=== PATIENT | male | born 1960 | race Caucasian/White ===

== ENCOUNTER → 2019-05-26 09:39 | Outpatient (CLI) | payer MEDICAID ==
[2014-04-10 11:06] VITALS: BMI 20.6
[~2019-05-26 09:39] MED LIST: ALDACTONE25 MG PO; BAYER CHEWABLE81 MG PO; CELEXA20 MG PO; COUMADIN5 MG PO; CRESTOR5 MG; LASIX40 MG PO; LEVAQUIN500 MG PO; LIPITOR10 MG PO; LOPRESSOR25 MG PO; PLAVIX75 MG PO; PRINIVIL10 MG PO; PROSCAR5 MG PO
== END | disposition home or self-care (01) ==
LOC: D.CT 09:39
PROVIDERS: ATTEND Family Medicine
DX: I73.9 Peripheral vascular disease, unspecified (principal)

== ENCOUNTER 2019-07-14 10:52 | Inpatient (IN) | payer MEDICAID ==
[2019-07-14] VITALS (7 sets, daily range): BP systolic 118–143; BP diastolic 82–98; BMI 18.6
[~2019-07-14] VITALS: Ht 177.8 cm; Wt 59.0 kg
[2019-07-14] MEDS ORDERED: PROSCAR5 MG PO (11:01)
[2019-07-14] MEDS ORDERED: COUMADIN5 MG (11:02)
[2019-07-14] MEDS ORDERED: COUMADIN5 MG PO (11:02)
[2019-07-14] MEDS ORDERED: COREG 3.1253.125 MG PO (11:03)
[2019-07-14 11:31] LABS: HEMATOCRIT 41.3 % (42.0-54.0); HEMOGLOBIN 13.6 g/dL (13.5-17.5); MCHC 32.9 g/dL (31.0-37.0); MCV 88.1 fL (80.0-100.0); PLATELET COUNT 209 10x3/uL (130-400); RBC 4.69 10x6/uL (4.20-6.10); RDW 14.6 % (11.5-14.5); WBC 7.7 10x3/uL (4.8-10.8)
[2019-07-14 11:37] LABS: CALC OSMOLALITY 274 mosm/kg (275-300); CALCIUM 8.4 mg/dL (8.5-10.1); CARBON DIOXIDE 25.8 mmol/L (21.0-32.0); CHLORIDE - SERUM 104 mmol/L (98-107); CREATININE - SERUM 1.3 mg/dL (0.6-1.3); GLUCOSE 98 mg/dL (74-106); SODIUM 138 mmol/L (136-145); UREA NITROGEN 10 mg/dL (7-18); eGFR NON AFRICAN AMERICAN 60 mL/min (90-120)
[2019-07-14 11:43] LABS: INR 4.16 (0.85-1.17); PROTIME 39.4 SECONDS (11.6-15.0)
[2019-07-14 11:44] LABS: APTT 63.7 SECONDS (22.8-39.4)
[2019-07-14 11:54] LABS: ALBUMIN 3.1 g/dL (3.4-5.0); ALKALINE PHOSPHATASE 101 U/L (30-120); ALT (SGPT) 13 U/L (10-68); BILIRUBIN - TOTAL 0.29 mg/dL (0.2-1.3); CKMB 0.7 U/L (0.0-3.6); CREATINE KINASE 32 UL (21-232); PRO BNP 8935 pg/mL (0-125); PROTEIN - SERUM 7.1 g/dL (6.4-8.2); TROPONIN-I < 0.017 ng/mL (0.000-0.060)
[2019-07-14 12:08] LABS: EOSINOPHILS 2 % (0-7); LYMPHOCYTES 28 % (15-50); MONOCYTES 8 % (2-11); NEUTROPHILS 62 % (40-80)
[2019-07-14 12:09] LABS: PLATELET ESTIMATE NORMAL
--- NOTE | 2019-07-14 14:10 | NUR ---
NIURKA COMPLETED AT 1410.
--- NOTE | 2019-07-14 14:27 | NUR ---
CALLED MED 2 TO GIVE REPORT. NURSE BUSY IN PT'S ROOM AND WILL CALL BACK
--- NOTE | 2019-07-14 15:04 | NUR ---
RECEIVED PT TO ROOM 2131 VIA WHEELCHAIR, PT A/O X4, RESP EVEN AND NONLABORED ON RA. LT FA IV SL. PT ASKING ABOUT FOOD, INFORMED PT THAT WE WOULD GET HIM SOMETHING TO EAT. ORIENTED PT TO ROOM AND CALL LIGHT, WILL ASSESS PT AND START PLAN OF CARE.
[2019-07-15] VITALS: BP 121/83
--- NOTE | 2019-07-15 02:12 | NUR ---
I have reviewed this patient and I concur with the Shift Assessment completed by the Licensed Practical Nurse today this shift.
[2019-07-15 04:00] VITALS: BP 133/91
[2019-07-15 04:07] LABS: BILIRUBIN NEGATIVE (NEGATIVE); GLUCOSE NEGATIVE (NEGATIVE); KETONE NEGATIVE (NEGATIVE); NITRITE NEGATIVE (NEGATIVE); UROBILINOGEN NORMAL (NORMAL)
[2019-07-15 04:18] LABS: UDS - AMPHET NEGATIVE QUAL (NEGATIVE); UDS - BARB NEGATIVE QUAL (NEGATIVE); UDS - BENZO NEGATIVE QUAL (NEGATIVE); UDS - COCAINE NEGATIVE QUAL (NEGATIVE); UDS - OPIATE NEGATIVE QUAL (NEGATIVE); UDS - PCP NEGATIVE QUAL (NEGATIVE); UDS - THC POSITIVE QUAL (NEGATIVE)
[2019-07-15 06:07] LABS: BASOPHILS 0 % (0-2); EOSINOPHILS 0 % (0-7); HEMATOCRIT 44.8 % (42.0-54.0); HEMOGLOBIN 15.3 g/dL (13.5-17.5); IMMATURE GRANULOCYTES 0.1 % (0-5); LYMPHOCYTES 16.1 % (15-50); MCH 29.5 pg (26.0-34.0); MCHC 34.2 g/dL (31.0-37.0); MCV 86.3 fL (80.0-100.0); MONOCYTES 2.3 % (2-11); NEUTROPHILS 81.5 % (40-80); PLATELET COUNT 225 10x3/uL (130-400); RBC 5.19 10x6/uL (4.20-6.10); RDW 14.2 % (11.5-14.5); WBC 8.9 10x3/uL (4.8-10.8)
[2019-07-15 06:50] LABS: ALBUMIN 3.1 g/dL (3.4-5.0); ANION GAP 15.7 mmol/L (8-16); BILIRUBIN - TOTAL 0.6 mg/dL (0.2-1.3); CALCIUM 8.8 mg/dL (8.5-10.1); CARBON DIOXIDE 22.8 mmol/L (21.0-32.0); CREATININE - SERUM 1.3 mg/dL (0.6-1.3); POTASSIUM - SERUM 4.5 mmol/L (3.5-5.1)
--- NOTE | 2019-07-15 08:51 | NUR ---
NOTIFIED CHIVO SANCHEZ APRN OF PT HAVING A RUN OF VTACH LAST NIGHT.
[2019-07-15 09:00] VITALS: BP 121/82
[2019-07-15 12:00] VITALS: BP 107/75
[2019-07-15 12:26] LABS: INR 2.56 (0.85-1.17); PROTIME 27.1 SECONDS (11.6-15.0)
--- NOTE | 2019-07-15 13:13 | NUR ---
IVPB ROCEPHIN HUNG TO INFUSE TO LT AC. PT RESTING COMFORTABLY IN BED, DENIES ANY NEEDS AT THIS TIME. CALL LIGHT IN REACH, NAD NOTED,WILL CONTINUE TO MONITOR.
[2019-07-15 15:15] VITALS: Ht 177.8 cm; Wt 59.0 kg
[2019-07-15 16:00] VITALS: BP 111/76
--- NOTE | 2019-07-15 17:10 | NUR ---
PT RESTING COMFORTABLY IN BED, DENIES ANY NEEDS AT THIS TIME. CALL LIGHT IN REACH, NAD NOTED, WILL CONTINUE TO MONITOR.
--- NOTE | 2019-07-15 19:47 | NUR ---
ASSESSMENT COMPLETE, PT A&O. SITTING UP IN BED WATCHING TV. RESPERATIONS EVEN AND NON LABORED ON RA IV TO LEFT AC SL, SITE CLEAN AND DRY. PT CURRETLY DENIES PAIN. FRESH ICE WATER GIVEN AT PT REQUEST.
[2019-07-15 20:00] VITALS: BP 98/63
[2019-07-16] VITALS: BP 101/72
--- NOTE | 2019-07-16 01:42 | NUR ---
I have reviewed this patient and I concur with the Shift Assessment completed by the Licensed Practical Nurse today this shift.
--- NOTE | 2019-07-16 04:23 | NUR ---
RESTING WITH EYES CLOSED, RESPERATIONS EVEN, NO S/S DISTRESS NOTED.
[2019-07-16 05:57] LABS: BASOPHILS 0.1 % (0-2); EOSINOPHILS 0 % (0-7); HEMATOCRIT 44.8 % (42.0-54.0); HEMOGLOBIN 15.2 g/dL (13.5-17.5); IMMATURE GRANULOCYTES 0.2 % (0-5); LYMPHOCYTES 10.1 % (15-50); MCH 29.5 pg (26.0-34.0); MCHC 33.9 g/dL (31.0-37.0); MEAN PLATELET VOLUME 11.7 fL (7.4-10.4); MONOCYTES 3.9 % (2-11); NEUTROPHILS 85.7 % (40-80); PLATELET COUNT 225 10x3/uL (130-400); RBC 5.15 10x6/uL (4.20-6.10); RDW 14.3 % (11.5-14.5)
[2019-07-16 06:30] LABS: ANION GAP 10.2 mmol/L (8-16); CALCIUM 8.7 mg/dL (8.5-10.1); CREATININE - SERUM 1.6 mg/dL (0.6-1.3); POTASSIUM - SERUM 4.5 mmol/L (3.5-5.1)
[2019-07-16 06:51] LABS: CARBON DIOXIDE 29.3 mmol/L (21.0-32.0)
[2019-07-16 10:13] VITALS: BP 98/65
[2019-07-16] MEDS ORDERED: OMNICEF300 MG PO (12:05)
[2019-07-16] MEDS ORDERED: COREG6.25 MG PO (12:05)
--- NOTE | 2019-07-16 13:07 | MORECARE ---
CASE MANAGEMENT DISCHARGE SUMMARY PATIENT: CLIFF PINEDA ALLI UNIT: [id number] ADM DATE: 07/14/19 AGE: 59 : 62 SEX: M ROOM/BED: D.2132 AUTHOR: TENZIN CONLEY PHYSICIAN: REFERRING PHYSICIAN: SUSANA ESCALONA MD DATE OF SERVICE: 07/16/19 Discharge Plan Patient Name: CLIFF PINEDA Facility: [facility]:[place] : 1960 Planned Disposition: Home Health Service Anticipated Discharge Date: Discharge Date: Expected LOS: Initial Reviewer: [email or web address] Initial Review Date: 07/16/2019 Generated: 07/16/19 2:06 pm Comments DCP- Discharge Planning Updated by [email or web address]: Yi Machado on 07/16/19 12:[address] Patient Name: CLIFF PINEDA Admission Status: Elective Accout number: [id number] Admission Date: 07-14-2019 : 1960 Admission Diagnosis: Attending: SUSANA ESCALONA Current LOS: 2 Anticipated DC Date: Planned Disposition: Home Health Service Primary Insurance: MEDICAID [place] Discharge Planning Comments: CM MET WITH PATIENT AFTER OBTAINING VERBAL CONSENT. PATIENT PLANS TO DC TO HOME TODAY. DENIES NEED FOR REHAB OR EQUIPMENT. PATIENT DOES NEED HH. SOON HE GETS IN TOUCH WITH HIS MOM HE WILL CALL ME WITH THE COMPANY NAME. CM TO FOLLOW AND ASSIST. Coal Chemist: Yi Machado DCPIA - Discharge Planning Initial Assessment Updated by [email or web address]: Yi Machado on 07/16/19 1:03 pm * Is the patient Alert and Oriented? Yes * PCP AILYN * [facility] * Preadmission Environment Home with Family * ADLs Independent * Additional services required to return to the preadmission environment? Yes * Can the patient safely return to the preadmission environment? Yes * Has this patient been hospitalized within the prior 30 days at any hospital? No Patient Name: CLIFF PINEDA Page 08023 at 1307 All edits/amendments must be made on the electronic document DICTATION DATE: 07/16/19 1306 STOKER INSTALLATION MECHANIC: LUIS FERNANDO 07/16/19 1306 RPT#: [id number] DC DATE: STATUS: ADM IN [facility] [address] [place] [address] END OF REPORT
--- NOTE | 2019-07-16 14:01 | MORECARE ---
CASE MANAGEMENT DISCHARGE SUMMARY PATIENT: CLIFF PINEDA ALLI UNIT: [id number] ADM DATE: 07/14/19 AGE: 59 : 62 SEX: M ROOM/BED: D.2132 AUTHOR: TENZIN CONLEY PHYSICIAN: REFERRING PHYSICIAN: SUSANA ESCALONA MD DATE OF SERVICE: 07/16/19 Discharge Plan Patient Name: CLIFF PINEDA Facility: [facility]:[place] : 1960 Planned Disposition: Home Health Service Anticipated Discharge Date: Discharge Date: Expected LOS: Initial Reviewer: [email or web address] Initial Review Date: 07/16/2019 Generated: 07/16/19 3:00 pm Comments DCP- Discharge Planning Updated by [email or web address]: Yi Machado on 07/16/19 12:[address] Patient Name: CLIFF PINEDA Admission Status: Elective Accout number: [id number] Admission Date: 07-14-2019 : 1960 Admission Diagnosis: Attending: SUSANA ESCALONA Current LOS: 2 Anticipated DC Date: Planned Disposition: Home Health Service Primary Insurance: MEDICAID [place] Discharge Planning Comments: CM MET WITH PATIENT AFTER OBTAINING VERBAL CONSENT. PATIENT PLANS TO DC TO HOME TODAY. DENIES NEED FOR REHAB OR EQUIPMENT. PATIENT DOES NEED HH. SOON HE GETS IN TOUCH WITH HIS MOM HE WILL CALL ME WITH THE COMPANY NAME. CM TO FOLLOW AND ASSIST. Eeg Technician: Yi Machado DCPIA - Discharge Planning Initial Assessment Updated by [email or web address]: Yi Machado on 07/16/19 1:03 pm * Is the patient Alert and Oriented? Yes * PCP AILYN * [facility] * Preadmission Environment Home with Family * ADLs Independent * Additional services required to return to the preadmission environment? Yes * Can the patient safely return to the preadmission environment? Yes * Has this patient been hospitalized within the prior 30 days at any hospital? No External Providers [email or web address] [place] Next Contact Date: Service Request Date: Service Type: Resolution: Reviewer: Comments: Coverage Notice Reviewer: [email or web address] Barbara Machado Notice Issued Date-Time: 07/16/2019 13:53 Notice Type: Patient Choice Letter Notice Delivered To: Relationship to Patient: Zoning Assistant Name: Delivery Method: HAND - Hand Delivered Karlee Days: Prior Verbal Notification: Recipient Understood Notice: Yes Recipient Signature: Yes Med Rec Note Co-signed by Attending: Coverage Notice Comment: LESLIE PHILLIPS Last DP export: 07/16/19 12:07 p Patient Name: CLIFF PINEDA Page 75811 at 1401 All edits/amendments must be made on the electronic document DICTATION DATE: 07/16/191399 SURGICAL ELASTIC KNITTER: LUIS FERNANDO 07/16/19 1400 RPT#: [id number] DC DATE: STATUS: ADM IN [facility] [address] [place] [address] END OF REPORT
[2019-07-16 14:35] VITALS: BP 96/57
[2019-07-16 18:10] VITALS: BP 160/88
--- NOTE | 2019-07-17 08:33 | MORECARE ---
CASE MANAGEMENT DISCHARGE SUMMARY PATIENT: CLIFF PINEDA ALLI UNIT: [id number] ADM DATE: 07/14/19 AGE: 59 : 62 SEX: M ROOM/BED: D.2132 AUTHOR: YAEL,DOC PHYSICIAN: REFERRING PHYSICIAN: SUSANA ESCALONA MD DATE OF SERVICE: 07/17/19 Discharge Plan Patient Name: CLIFF PINEDA Facility: [facility]:[place] : 1960 Planned Disposition: Home Health Service Anticipated Discharge Date: Discharge Date: 07/16/2019 Expected LOS: Initial Reviewer: [email or web address] Initial Review Date: 07/16/2019 Generated: 07/17/19 9:32 am Comments DCP- Discharge Planning Updated by [email or web address]: Yi Machado on 07/16/19 12:[address] Patient Name: CLIFF PINEDA Admission Status: Elective Accout number: [id number] Admission Date: 07-14-2019 : 1960 Admission Diagnosis: Attending: SUSANA ESCALONA Current LOS: 2 Anticipated DC Date: Planned Disposition: Home Health Service Primary Insurance: MEDICAID [place] Discharge Planning Comments: CM MET WITH PATIENT AFTER OBTAINING VERBAL CONSENT. PATIENT PLANS TO DC TO HOME TODAY. DENIES NEED FOR REHAB OR EQUIPMENT. PATIENT DOES NEED HH. SOON HE GETS IN TOUCH WITH HIS MOM HE WILL CALL ME WITH THE COMPANY NAME. CM TO FOLLOW AND ASSIST. Airplane Fueler: Yi Machado DCPIA - Discharge Planning Initial Assessment Updated by [email or web address]: Yi Machado on 07/16/19 1:03 pm * Is the patient Alert and Oriented? Yes * PCP AILYN * [facility] * Preadmission Environment Home with Family * ADLs Independent * Additional services required to return to the preadmission environment? Yes * Can the patient safely return to the preadmission environment? Yes * Has this patient been hospitalized within the prior 30 days at any hospital? No Coverage Notice Reviewer: [id number] - Yi Machado Notice Issued Date-Time: 07/16/2019 13:53 Notice Type: Patient Choice Letter Notice Delivered To: Relationship to Patient: Software Programmer Name: Delivery Method: HAND - Hand Delivered Karlee Days: Prior Verbal Notification: Recipient Understood Notice: Yes Recipient Signature: Yes Med Rec Note Co-signed by Attending: Coverage Notice Comment: LESLIE PHILLIPS Last DP export: 07/16/19 1:01 p Patient Name: CLIFF PINEDA Page 34366 at 0833 All edits/amendments must be made on the electronic document DICTATION DATE: 07/17/19831 BALANCE AND HAIRSPRING ASSEMBLER: LUIS FERNANDO 07/17/19831 RPT#: [id number] DC DATE:07/16/19 STATUS: DIS IN [facility] [address] [place] [address] END OF REPORT
--- NOTE | 2019-07-18 11:36 | EC ---
PATIENT:CLIFF PINEDA DATE OF SERVICE: 07/14/19 SEX: M MEDICAL RECORD: [id number] DATE OF : [birth year] LOCATION:D.M2 D.213 AGE OF PATIENT: 59 ADMISSION DATE: 07/14/19 REFERRING PHYSICIAN: INTERPRETING PHYSICIAN: MARLINE TAYLOR MD ECHOCARDIOGRAM REPORT ECHO CHARGES 4 ECHO COMPLETE Date: 07/15/19 CLINICAL DIAGNOSIS: DYSPNEA ECHOCARDIOGRAPHIC MEASUREMENTS (adult normal given) AC root (d.<3.7cm) 3.1 cm LV Septum d (<1.2 cm> 0. cm Valve Excursion 1.6 cm LV Septum (systole) 1.3 cm Left Atria (s.<4.0cm> 3.0 cm LVPW d(<1.2cm) 0.9 cm RV (d.<2.3cm) 2.7 cm LVPW (sytole) 1.5 cm LV diastole(<5.6CM) 4.3 cm MV E-F(>70mm/sec) cm LV systole 3.6 cm LVOT Diameter 1.9 cm MV exc.(>10mm) cm Est.ejection fraction (50-75%) % DOPPLER: LVIT cm/sec A 47.0 cm/sec E 38.0 cm/sec LA cm/sec RVSP 44.2 mmHg LVOT 58.0 cm/sec AOP1/2T m/s Asc. Ao 90.0 cm/sec RVOT 51.0 cm/sec RA cm/sec PA 54.0 cm/sec AV Gradient Peak 3.2 mmHg AV Mean 1.7 mmHg AV Area 1.7 cm MV Gradient Peak 2.2 mmHg MV Mean 0.85 mmHg MV Area cm COMMENTS: Supervisor Crack Off: 1 SHANELLE VILLALPANDOOE Marine Animal Trainer: 3 Dr. Mohan TAPE# PACS Pericardial Effusion N DATE OF SERVICE: Adequate 2D, color flow imaging, spectral Doppler, and M-Mode. No LVH. LV internal dimensions are normal. 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 Aortic valve is tricuspid. No evidence of stenosis by Doppler interrogation. Left atrium is normal. Mitral valve shows no prolapse. Taky-ln-dhodclrd MR. Right-sided chambers grossly normal. Moderate TR. ECHOCARDIOGRAM REPORT [id number] CLIFF PINEDA TRANSINT:[id number] Voice Confirmation ID: [id number] DOCUMENT ID: [id number] MARLINE TAYLOR MD at 1136 CC: [id number] DICTATION DATE: 07/15/19 1505 DUB ROOM ENGINEER: 07/15/19 1756 DIS IN 07/16/19 [place] [id number] [place] [id number]
== END 2019-07-16 19:32 | disposition home health service (06) | DRG 292 ==
LOC: D.ER 10:52 → D.M2 11:34
PROVIDERS: Family Medicine; ADMIT Internal Medicine Nephrology; ATTEND Internal Medicine Nephrology
DX: I11.0 Hypertensive heart disease with heart failure (principal); J44.1 Chronic obstructive pulmonary disease with (acute) exacerbation; F17.213 Nicotine dependence, cigarettes, with withdrawal; I47.2 Ventricular tachycardia; I50.23 Acute on chronic systolic (congestive) heart failure; F41.9 Anxiety disorder, unspecified; E78.5 Hyperlipidemia, unspecified; I42.9 Cardiomyopathy, unspecified; Z79.01 Long term (current) use of anticoagulants; Z86.73 Personal history of transient ischemic attack (TIA), and cerebral infarction without residual deficits

== ENCOUNTER → 2019-07-21 21:44 | Outpatient (CLI) | payer MEDICAID ==
[2019-07-15 15:15] VITALS: BMI 18.6
[~2019-07-21 21:44] MED LIST changes: +COREG 3.1253.125 MG PO; +COREG6.25 MG PO; +COUMADIN5 MG; +OMNICEF300 MG PO
[2019-07-21 22:13] LABS: ANION GAP 13.3 mmol/L (8-16); CALCIUM 8.1 mg/dL (8.5-10.1); CARBON DIOXIDE 23.9 mmol/L (21.0-32.0); CREATININE - SERUM 1.1 mg/dL (0.6-1.3); POTASSIUM - SERUM 4.2 mmol/L (3.5-5.1)
== END | disposition home or self-care (01) ==
LOC: D.LABREF 21:44
PROVIDERS: ATTEND Family Medicine
DX: I11.0 Hypertensive heart disease with heart failure (principal); I50.43 Acute on chronic combined systolic (congestive) and diastolic (congestive) heart failure; J44.9 Chronic obstructive pulmonary disease, unspecified; I10 Essential (primary) hypertension

== ENCOUNTER → 2019-07-23 15:10 | Outpatient (CLI) | payer MEDICAID ==
[2019-07-15 15:15] VITALS: BMI 18.6
[2019-07-23 15:36] LABS: ANION GAP 12.1 mmol/L (8-16); CALCIUM 8.5 mg/dL (8.5-10.1); CARBON DIOXIDE 26.8 mmol/L (21.0-32.0); CREATININE - SERUM 1.1 mg/dL (0.6-1.3)
[2019-07-23 15:39] LABS: POTASSIUM - SERUM 4.9 mmol/L (3.5-5.1)
== END | disposition home or self-care (01) ==
LOC: D.LABREF 15:10
PROVIDERS: ATTEND Family Medicine
DX: I11.0 Hypertensive heart disease with heart failure (principal); I50.43 Acute on chronic combined systolic (congestive) and diastolic (congestive) heart failure; J44.1 Chronic obstructive pulmonary disease with (acute) exacerbation

== ENCOUNTER → 2019-07-28 17:24 | Outpatient (CLI) | payer MEDICAID ==
[2019-07-15 15:15] VITALS: BMI 18.6
[2019-07-28 17:44] LABS: CALC OSMOLALITY 258 mosm/kg (275-300); CARBON DIOXIDE 20.5 mmol/L (21.0-32.0); CHLORIDE - SERUM 100 mmol/L (98-107); CREATININE - SERUM 0.7 mg/dL (0.6-1.3); GLUCOSE 71 mg/dL (74-106); SODIUM 130 mmol/L (136-145); UREA NITROGEN 13 mg/dL (7-18); eGFR NON AFRICAN AMERICAN > 90 mL/min (90-120)
== END | disposition home or self-care (01) ==
LOC: D.LABREF 17:24
PROVIDERS: ATTEND Registered Nurse Emergency
DX: I11.0 Hypertensive heart disease with heart failure (principal); I50.43 Acute on chronic combined systolic (congestive) and diastolic (congestive) heart failure; I44.1 Atrioventricular block, second degree

== ENCOUNTER → 2019-08-04 17:31 | Outpatient (CLI) | payer MEDICAID ==
[2019-07-15 15:15] VITALS: BMI 18.6
[2019-08-04 18:25] LABS: ANION GAP 11.6 mmol/L (8-16); CALCIUM 8.5 mg/dL (8.5-10.1); CARBON DIOXIDE 26.6 mmol/L (21.0-32.0); CREATININE - SERUM 1.3 mg/dL (0.6-1.3); POTASSIUM - SERUM 5.2 mmol/L (3.5-5.1)
== END | disposition home or self-care (01) ==
LOC: D.LABREF 17:31
PROVIDERS: ATTEND Family Medicine
DX: I11.0 Hypertensive heart disease with heart failure (principal)

== ENCOUNTER 2019-10-28 00:32 | Inpatient (IN) | payer MEDICAID ==
[2019-10-28] VITALS (43 sets, daily range): BP systolic 83–131; BP diastolic 51–95; Ht 177.8 cm; Wt 59.1 kg
[~2019-10-28] VITALS: Ht 177.8 cm; Wt 59.1 kg
[2019-10-28 00:53] LABS: BASOPHILS 0.2 % (0-2); EOSINOPHILS 0.4 % (0-7); HEMATOCRIT 44.3 % (42.0-54.0); HEMOGLOBIN 13.9 g/dL (13.5-17.5); IMMATURE GRANULOCYTES 0.2 % (0-5); LYMPHOCYTES 19.9 % (15-50); MCH 28.7 pg (26.0-34.0); MCHC 31.4 g/dL (31.0-37.0); MCV 91.5 fL (80.0-100.0); MEAN PLATELET VOLUME 11.3 fL (7.4-10.4); MONOCYTES 5.9 % (2-11); NEUTROPHILS 73.4 % (40-80); RBC 4.84 10x6/uL (4.20-6.10); RDW 14.2 % (11.5-14.5); WBC 9.6 10x3/uL (4.8-10.8)
[2019-10-28 00:55] LABS: PLATELET COUNT 157 10x3/uL (130-400)
[2019-10-28 00:56] LABS: APTT 39.6 SECONDS (22.8-39.4); INR 2.36 (0.85-1.17); PROTIME 25.4 SECONDS (11.6-15.0)
[2019-10-28 01:05] LABS: D-DIMER-QUANTITATIVE 4.52 ug/mLFEU (0.20-0.54)
[2019-10-28 01:15] LABS: ALBUMIN 3.3 g/dL (3.4-5.0); BILIRUBIN - TOTAL 0.54 mg/dL (0.2-1.3); C-REACTIVE PROTEIN 4.1 mg/dL (0.0-0.9); CALCIUM 8.5 mg/dL (8.5-10.1); CARBON DIOXIDE 27.4 mmol/L (21.0-32.0); MAGNESIUM - SERUM 2.1 mg/dL (1.8-2.4); PROTEIN - SERUM 7.5 g/dL (6.4-8.2); THYROID STIMULATING HORMONE 2.44 uIU/mL (0.36-3.74)
[2019-10-28 01:26] LABS: ANION GAP 10.9 mmol/L (8-16)
[2019-10-28 01:27] LABS: POTASSIUM - SERUM 6.3 mmol/L (3.5-5.1); TROPONIN-I 0.087 ng/mL (0.000-0.060)
--- NOTE | 2019-10-28 06:00 | NUR ---
ENTERED PT ROOM AFTER VENT ALARMING. PT HAD SELF EXTUBATED. PLACED ON NON REBREATHER. CALLED RAPID RESPONSE. O2 SAT 97% RA, 100% NONREBREATHER. MD DECIDED TO SEE HOW PT DOES EXTUBATED. VS STABLE. NO VISUAL CUES OF DISTRESS NOTED. WILL CONTINUE TO MONITOR.
--- NOTE | 2019-10-28 07:00 | NUR ---
ASSESSMENT PER FLOWSHEET. VOICES C/O NOT WANTING TO BE HERE. STATES IM GOING TO GO HOME TODAY. INSTRUCT TO PATIENT YOU ARE VERY SICK AND IF YOU GO HOME RISK IS HIGH OF . PT STATES HE WILL TAKE HIM CHANCES.
--- NOTE | 2019-10-28 07:10 | NUR ---
DR PARISA MYERS.
[2019-10-28 07:18] LABS: ALBUMIN 2.7 g/dL (3.4-5.0); ANION GAP 14.1 mmol/L (8-16); BILIRUBIN - TOTAL 0.31 mg/dL (0.2-1.3); CALCIUM 7.5 mg/dL (8.5-10.1); CARBON DIOXIDE 21.3 mmol/L (21.0-32.0); PROTEIN - SERUM 5.7 g/dL (6.4-8.2)
[2019-10-28 07:19] LABS: CREATININE - SERUM 1.3 mg/dL (0.6-1.3); POTASSIUM - SERUM 4.4 mmol/L (3.5-5.1)
[2019-10-28 07:30] LABS: BASOPHILS 0 % (0-2); EOSINOPHILS 0.1 % (0-7); HEMATOCRIT 36.7 % (42.0-54.0); HEMOGLOBIN 11.5 g/dL (13.5-17.5); IMMATURE GRANULOCYTES 0.3 % (0-5); LYMPHOCYTES 10.9 % (15-50); MCH 28.3 pg (26.0-34.0); MCHC 31.3 g/dL (31.0-37.0); MCV 90.4 fL (80.0-100.0); MEAN PLATELET VOLUME 11.5 fL (7.4-10.4); MONOCYTES 4.7 % (2-11); RBC 4.06 10x6/uL (4.20-6.10); RDW 14.1 % (11.5-14.5); WBC 7.3 10x3/uL (4.8-10.8)
[2019-10-28 07:39] LABS: PLATELET COUNT 104 10x3/uL (130-400)
--- NOTE | 2019-10-28 07:53 | NUR ---
DR JOVAN MYERS.
--- NOTE | 2019-10-28 08:00 | NUR ---
WRIST RESTRAINTS DCD.
--- NOTE | 2019-10-28 08:06 | NUR ---
DR JOVAN MYERS.
--- NOTE | 2019-10-28 08:40 | NUR ---
DR ALDANA RETURN CALL. NEW ORDERS OBTAINED.
--- NOTE | 2019-10-28 10:30 | NUR ---
UP IN CHAIR.
[2019-10-29] VITALS (66 sets, daily range): BP systolic 80–163; BP diastolic 53–127
[2019-10-29 04:40] LABS: HEMATOCRIT 41.9 % (42.0-54.0); HEMOGLOBIN 13.6 g/dL (13.5-17.5); LYMPHOCYTES 13.8 % (15-50); MCH 28.8 pg (26.0-34.0); MCHC 32.5 g/dL (31.0-37.0); MCV 88.6 fL (80.0-100.0); MEAN PLATELET VOLUME 11.9 fL (7.4-10.4); NEUTROPHILS 82.9 % (40-80); RBC 4.73 10x6/uL (4.20-6.10); RDW 14.3 % (11.5-14.5)
[2019-10-29 04:42] LABS: PLATELET COUNT 125 10x3/uL (130-400); WBC 15.6 10x3/uL (4.8-10.8)
[2019-10-29 05:08] LABS: ANION GAP 11.3 mmol/L (8-16); BILIRUBIN - TOTAL 0.47 mg/dL (0.2-1.3); CALCIUM 8.1 mg/dL (8.5-10.1); CARBON DIOXIDE 23.6 mmol/L (21.0-32.0); CREATININE - SERUM 1.3 mg/dL (0.6-1.3); MAGNESIUM - SERUM 1.9 mg/dL (1.8-2.4); PHOSPHOROUS 3.6 mg/dL (2.5-4.9); POTASSIUM - SERUM 4.9 mmol/L (3.5-5.1); PROTEIN - SERUM 6.9 g/dL (6.4-8.2)
[2019-10-29 05:09] LABS: INR 2.19 (0.85-1.17)
[2019-10-29 05:27] LABS: TROPONIN-I 0.084 ng/mL (0.000-0.060)
--- NOTE | 2019-10-29 06:15 | NUR ---
DR. ALDANA NOTIFED THAT PATIENT WAS HAVING A DIFFICULT TIME BREATHING USING ACCESSORY MUSCLES. PATIENT IS UNABLE TO LEAVE BIPAP MASK ON AND IS PANIKING. PATIENT REQUEST TO BE INTUBATED THAT HE CANT BREATH. DR. ALDANA ORDERED TO CALL ANESTHESIA AND HAVE PATIENT INTUBATED.
--- NOTE | 2019-10-29 06:24 | NUR ---
DR. MARQUEZ HERE INTUBATED PATIENT. SPO2 100%. CXR ORDERED. WILL CONTINUE TO MONITOR.
--- NOTE | 2019-10-29 07:00 | NUR ---
RECEIVED BEDSIDE REPORT ON PATIENT AND ASSUMED CARE. PATIENT SEDATED ON VENT, REINTUBATED EMERGENTLY AT APPROXIMATELY 0630 THIS AM. PROPOFOL AT 30 MCG/KG/MIN INFUSING TO RIGHT AC ALONG WITH NS AT 30 ML/HR, NO S/S OF INFILTRATION. PATIENT RESTLESS AND BP 151/103, PROPOFOL GTT INCREASED TO 40 MCG/KG/MIN. BBS - TIGHT, CONSTRICTED WITH WHEEZING NOTED. SPO2 - 90% ON 50% FIO2 VIA VENT. VENT SETTINGS ARE A/C 18, TV 500, PEEP OF 5, 8.0 ETT AT 22 CM AT GUM LINE. RESTRAINTS IN PLACE. CM - ST RATE OF 102, WITH NO ECTOPY NOTED. SORIANO CATH IN PLACE WITH 500 ML OF CLEAR YELLOW UOP EMPTIED. PATIENT TURNED AND REPOSITIONED IN BED, PARTIAL BATH GIVEN AND LINENS CHANGED. HEAD TO TO ASSESSMENT COMPLETED.
--- NOTE | 2019-10-29 08:30 | NUR ---
IV 22 GA STARTED TO RIGHT FOREARM X 1 ATTEMPT POSITIVE BLOOD RETURN AND FLUSHES EASILY. OG TUBE PLACED AND POSITION VERIFIED VIA ASCULTATION. PATIENT SITTING UP IN BED AND ATTEMPTING TO PULL AT ETT. PROPOFOL GTT INCREASED TO 50 MCG/KG/MIN.
--- NOTE | 2019-10-29 09:15 | NUR ---
PATIENT SEDATED ON VENT. VSS. TURNED AND REPOSITIONED IN BED.
--- NOTE | 2019-10-29 09:38 | NUR ---
DR. TAYLOR NOTIFIED OF CONSULT.
--- NOTE | 2019-10-29 09:45 | NUR ---
CHIVO SANCHEZ CHANNELING MACHINE RUNNER AT ROOM UPDATED AND EXAMINES PATIENT. RT DRAWING REPEAT ABGS AND OBTAINING SPUTUM CULTURE.
--- NOTE | 2019-10-29 10:19 | NUR ---
CONSENT OBTAINED FROM SON (KEVIN PINEDA) VIA TELEPHONE FOR PICC LINE INSERTION BY VASCULAR ACCESS SHANNAN.
--- NOTE | 2019-10-29 11:06 | NUR ---
VASCULAR ACCESS NURSE UNABLE TO PLACE PICC LINE. VSS. TURNED AND REPOSITIONED IN BED.
--- NOTE | 2019-10-29 12:21 | NUR ---
PATIENT ATTEMPTING TO SIT UP AND REACHING FOR ETT, PROPOFOL GTT INCREASED TO 30 MCG/KG/MIN (11.3 ML/HR). MEDS PER JUL.
--- NOTE | 2019-10-29 12:30 | NUR ---
PATIENT AGITATED ATTEMPTING TO SIT UP AND PULLING AT ETT. PROPOFOL GTT INCREASED TO 45 MCG/KG/MIN, HR 124, BP 127/68, RR 30.
--- NOTE | 2019-10-29 15:00 | NUR ---
REASSESSMENT COMPLETED. VSS. TURNED AND REPOSITIONED IN BED.
[2019-10-29 17:01] LABS: UDS - AMPHET NEGATIVE QUAL (NEGATIVE); UDS - BARB NEGATIVE QUAL (NEGATIVE); UDS - BENZO NEGATIVE QUAL (NEGATIVE); UDS - COCAINE NEGATIVE QUAL (NEGATIVE); UDS - OPIATE NEGATIVE QUAL (NEGATIVE); UDS - PCP NEGATIVE QUAL (NEGATIVE); UDS - THC NEGATIVE QUAL (NEGATIVE)
--- NOTE | 2019-10-29 19:00 | NUR ---
REPORT RECEIVED. RECEIVED PATIENT IN BED SEDATED/INTUBATED. ETT INTACT/SECURE/PATENT CONNECTED TO [facility] VENT AT ORDERED SETTINGS. ASSESSMENT COMPLETED PER FLOW SHEET WITH NO ACUTE DISTRESS OBSERVED. MONITORS CONNECTED TO PATIENT WITH ALARMS SET. VSS. ORAL CARE PERFORMED. PATIENT TURNED AND REPOSITIONED FOR COMFORT, BRANT WELL.
--- NOTE | 2019-10-29 21:00 | NUR ---
SEDATED/INTUBATED. VSS. TURNED AND POSITIONED FOR COMFORT. ORAL CARE GIVEN.BRANT WELL. CONT CURRENT POC
--- NOTE | 2019-10-29 23:00 | NUR ---
SEDATED/INTUBATED. REASSESSMENT COMPLETED PER FLOW SHEET WITH NO ACUTE DISTRESS OBSERVED. VSS. ORAL CARE GIVEN. TURNED AND POSITIONED FOR COMFORT. BRANT WELL
[2019-10-30] VITALS (27 sets, daily range): BP systolic 91–140; BP diastolic 61–91
--- NOTE | 2019-10-30 00:37 | NUR ---
PRN APRESOLINE ADMIN FOR BP 156/110
--- NOTE | 2019-10-30 01:00 | NUR ---
SEDATED/INTUBATED. VSS. TURNED AND REPOSITIONED. ORAL CARE GIVEN. BRANT WELL
--- NOTE | 2019-10-30 03:00 | NUR ---
SEDATED/INTUBATED. REASSESSMENT COMPLETED PER FLOW SHEET WITH NO ACUTE DISTRESS OBSERVED. VSS
[2019-10-30 06:19] LABS: BASOPHILS 0 % (0-2); EOSINOPHILS 0 % (0-7); HEMATOCRIT 38.3 % (42.0-54.0); HEMOGLOBIN 12.6 g/dL (13.5-17.5); IMMATURE GRANULOCYTES 0.2 % (0-5); MCH 29.2 pg (26.0-34.0); MCHC 32.9 g/dL (31.0-37.0); MCV 88.9 fL (80.0-100.0); MEAN PLATELET VOLUME 11.6 fL (7.4-10.4); MONOCYTES 4.3 % (2-11); NEUTROPHILS 83.5 % (40-80); PLATELET COUNT 130 10x3/uL (130-400); RBC 4.31 10x6/uL (4.20-6.10); RDW 14.3 % (11.5-14.5); WBC 12.1 10x3/uL (4.8-10.8)
[2019-10-30 06:45] LABS: INR 4.01 (0.85-1.17); PROTIME 38.3 SECONDS (11.6-15.0)
[2019-10-30 06:58] LABS: ALBUMIN 2.6 g/dL (3.4-5.0); BILIRUBIN - TOTAL 0.44 mg/dL (0.2-1.3); CALCIUM 7.6 mg/dL (8.5-10.1); CARBON DIOXIDE 29.3 mmol/L (21.0-32.0); CREATININE - SERUM 1.3 mg/dL (0.6-1.3); MAGNESIUM - SERUM 1.8 mg/dL (1.8-2.4); PHOSPHOROUS 2.8 mg/dL (2.5-4.9)
--- NOTE | 2019-10-30 07:00 | NUR ---
RECEIVED BEDSIDE REPORT ON PATIENT AND ASSUMED CARE. PATIENT SEDATED ON VENT, AROUSES TO VERBAL STIMULUS AND FOLLOWS COMMANDS, TURNED AND REPOSITIONED IN BED. VSS. SPO2 - 94% ON VENT, SETTINGS FIO2 - 40%, A/C 20, TV 500, PEEP 5, CM - SR WITH PACED BEATS. IV 18 GA TO RIGHT AC AND IV 22 GA TO RIGHT FA BOTH INFUSING WITHOUT S/S OF INFILTRATION. DOBUTAMINE AT 5 MCG/KG/MIN (9 ML/HR), NS AT 30 ML/HR, PROPOFOL AT 35 MCG/KG/MIN ( 13.2 ML/HR), AND FENTANYL AT 150 MCG/HR (3 ML/HR). SORIANO CATH IN PLACE WITH CLEAR YELLOW UOP NOTED. BILATERAL SOFT WRIST RESTRAINTS. ETT 8.0, 22 CM AT GUM LINE. OG TUBE IN PLACE, PLACEMENT VERIFIED BY ASCULTATION. HEAD TO TOE ASSESSMENT COMPLETED.
[2019-10-30 07:05] LABS: POTASSIUM - SERUM 3.3 mmol/L (3.5-5.1); TROPONIN-I 0.08 ng/mL (0.000-0.060)
--- NOTE | 2019-10-30 08:49 | NUR ---
SPOKE TO DR. ALDANA REGARDING PATIENTS ABG RESULTS, TO INCREASE FIO2 - 45%, POTASSIUM 3.[address] ON ELECTROLYTE PROTOCOL.
--- NOTE | 2019-10-30 09:23 | NUR ---
PATEINT TURNED AND REPOSTIONED IN BED. VSS. GIVEN MORING MEDS PER MAR AND REPLACED POTASSIUM PER PROTOCOL, TO REDRAW SERUM K+ AT 1330, ORDER PLACED.
--- NOTE | 2019-10-30 09:57 | NUR ---
Nutrition follow-up: Pt intubated, sedated with propofol @ 13.2 ml/hr Pulmocare started today @ 20 ml/hr with goal rate of 45 ml/hr per Dr. Ivey Labs reviewed Wt: 132# RDN following.
--- NOTE | 2019-10-30 10:09 | NUR ---
OGT ADVANCED 8 CM PER ORDER, VERIFIED BY ASCULTATION AND XRAY.
--- NOTE | 2019-10-30 10:27 | NUR ---
XRAY AT ROOM FOR OGT PLACEMENT CHECK X RAY.
--- NOTE | 2019-10-30 11:07 | NUR ---
REASSESSMENT COMPLETED. VSS. TURNED AND REPOSITIONED IN BED. ADVANCED OGT ADDITIONAL 5 CM PER RADIOLOGY.
--- NOTE | 2019-10-30 12:57 | NUR ---
PATIENT TURNED AND REPOSITIONED IN BED. VSS. DR. ALDANA AT ROOM UPDATED AND EXAMINES PATIENT.
--- NOTE | 2019-10-30 13:20 | NUR ---
LAB AT ROOM TO REDRAW K+ PER ORDER. OGT PLACEMENT VERIFIED BY ASCULTATION AND TUBE FEEDING PULMOCARE AT 10 ML/HR STARTED PER ORDER. VSS.
--- NOTE | 2019-10-30 14:00 | NUR ---
PATIENT SEDATED ON VENT. VSS. NO NEEDS AT THIS TIME. GIVEN MEDS PER MAR.
--- NOTE | 2019-10-30 15:09 | NUR ---
REASSESSMENT COMPLETED. VSS. PATIENT TURNED AND REPOSITIONED IN BED.
--- NOTE | 2019-10-30 16:46 | NUR ---
PATIENT TURNED AND REPOSITIONED IN BED. VSS.
--- NOTE | 2019-10-30 18:06 | NUR ---
FSBS - 148 MG/DL, NO INSULIN PER SLIDING SCALE. PATIENT RESTING QUIETLY, VSS. SPOKE TO PATIENTS DAUGHTER MEENA ON TELEPHONE UPDATED NA DQUESTIONS ANSWERED.
--- NOTE | 2019-10-30 19:00 | NUR ---
REPORT RECEIVED INITIAL ASSESSMENT COMPLETE. PT SEDATED WITH FENTANYL AND DIPRIVAN SEE IV DRIP FLOWSHEET FOR DRIP CHANGES. ORALLY INTUBATED SEE RESP FOR VENT SETTINGS CHANGES. CM READING PACED SR ALARMS ON AND AUDIBLE. BED LOW POSITION SIDE RAILS UP TIMES 3. CPOC
--- NOTE | 2019-10-30 22:08 | MORECARE ---
CASE MANAGEMENT DISCHARGE SUMMARY PATIENT: CLIFF PINEDA ALLI UNIT: [id number] ADM DATE: 10/28/19 AGE: 59 : 62 SEX: M ROOM/BED: [facility] AUTHOR: TENZIN CONLEY PHYSICIAN: REFERRING PHYSICIAN: KIT PHELPS MD DATE OF SERVICE: 10/30/19 Discharge Plan Patient Name: CLIFF PINEDA [facility] [facility] 1960 Planned Disposition: Anticipated Discharge Date: Discharge Date: Expected LOS: Initial Reviewer: [email or web address] Initial Review Date: 10/28/2019 Generated: 10/30/19 11:07 pm Patient Name: CLIFF PINEDA Page 49287 at 2208 All edits/amendments must be made on the electronic document DICTATION DATE: 10/30/192206 PAINTING DEPARTMENT SUPERVISOR: LUIS FERNANDO 10/30/192206 RPT#: [id number] DC DATE: STATUS: ADM IN [facility] [address] [place] [address] END OF REPORT
--- NOTE | 2019-10-30 22:14 | MORECARE ---
CASE MANAGEMENT DISCHARGE SUMMARY PATIENT: CLIFF PINEDA ALLI UNIT: [id number] ADM DATE: 10/28/19 AGE: 59 : 62 SEX: M ROOM/BED: [facility] AUTHOR: YAEL,DOC PHYSICIAN: REFERRING PHYSICIAN: KIT PHELPS MD DATE OF SERVICE: 10/30/19 Discharge Plan Patient Name: CLIFF PINEDA Facility: [facility]:[place] : 1960 Planned Disposition: Anticipated Discharge Date: Discharge Date: Expected LOS: Initial Reviewer: [email or web address] Initial Review Date: 10/28/2019 Generated: 10/30/19 11:13 pm Comments DCP- Discharge Planning Updated by [email or web address]: Paola Wu on 10/30/19 9:[address] Patient Name: CLIFF PINEDA Admission Status: ER Accout number: [id number] Admission Date: 10-28-2019 : 1960 Admission Diagnosis:SEPSIS, UNSPECIFIED ORGANISM Attending: KIT PHELPS Current LOS: 2 Anticipated DC Date: Planned Disposition: Primary Insurance: MEDICAID [place] Discharge Planning Comments: CM spoke with patient's daughter Meena to complete initial dc planning assessment. CM educated patient's daughter on the CM role and verbal consent given by patient to complete assessment. Patient lives at home with family (elderly parents). Patient is independent. At discharge patient plans to return home and feels this is a safe discharge. CM discussed availability of home health, rehab services, and medical equipment. Patient will have family to transport home. Uncertain at this time what patient's d/c needs will be currently on vent. CM will continue to follow and will assist as needed with dc plans/needs. Software Test Specialist: Paola Wu DCPIA - Discharge Planning Initial Assessment Updated by [id number]: Paola Wu on 10/30/19 10:09 pm * Is the patient Alert and Oriented? No * How many steps to enter\exit or inside your home? * PCP Rob * [facility] * Preadmission Environment Home with Family * ADLs Independent * Equipment None * List name and contact numbers for known caregivers / representatives who currently or will assist patient after discharge: MEENA - DAUGHTER - [phone] KEVIN PINEDA - SON - [phone] SOFI PINEDA - MOTHER -[phone] * Verbal permission to speak to the caregivers and representatives has been obtained from the patient. N/A * Community resources currently utilized None * Additional services required to return to the preadmission environment? No * Can the patient safely return to the preadmission environment? Yes * Has this patient been hospitalized within the prior 30 days at any hospital? No Last DP export: 10/30/19 9:07 p Patient Name: CLIFF PINEDA Page 21711 at 2214 All edits/amendments must be made on the electronic document DICTATION DATE: 10/30/192212 RETURNED CASE INSPECTOR: LUIS FERNANDO 10/30/192212 RPT#: [id number] DC DATE: STATUS: ADM IN [facility] [address] [place] [address] END OF REPORT
--- NOTE | 2019-10-30 23:00 | NUR ---
REASSESSMENT COMPLETE NO CHANGES CPOC
[2019-10-31] VITALS (24 sets, daily range): BP systolic 91–146; BP diastolic 58–88
--- NOTE | 2019-10-31 03:00 | NUR ---
REASSESSMENT COMPLETE NO CHANGES
--- NOTE | 2019-10-31 05:26 | NUR ---
LAB HERE FOR AM BLOOD DRAW
[2019-10-31 06:06] LABS: BASOPHILS 0.1 % (0-2); EOSINOPHILS 0 % (0-7); HEMATOCRIT 43.1 % (42.0-54.0); HEMOGLOBIN 13.7 g/dL (13.5-17.5); IMMATURE GRANULOCYTES 0.2 % (0-5); LYMPHOCYTES 11.8 % (15-50); MCH 28.8 pg (26.0-34.0); MCHC 31.8 g/dL (31.0-37.0); MCV 90.7 fL (80.0-100.0); MONOCYTES 6.3 % (2-11); NEUTROPHILS 81.6 % (40-80); PLATELET COUNT 143 10x3/uL (130-400); RBC 4.75 10x6/uL (4.20-6.10); RDW 14.4 % (11.5-14.5)
[2019-10-31 06:24] LABS: ALBUMIN 2.6 g/dL (3.4-5.0); BILIRUBIN - TOTAL 0.36 mg/dL (0.2-1.3); CALCIUM 8.5 mg/dL (8.5-10.1); CARBON DIOXIDE 32.5 mmol/L (21.0-32.0); CREATININE - SERUM 1.2 mg/dL (0.6-1.3); MAGNESIUM - SERUM 2.2 mg/dL (1.8-2.4); PHOSPHOROUS 2.8 mg/dL (2.5-4.9); PROTEIN - SERUM 6.5 g/dL (6.4-8.2)
[2019-10-31 06:26] LABS: ANION GAP 7.7 mmol/L (8-16); POTASSIUM - SERUM 3.2 mmol/L (3.5-5.1)
[2019-10-31 06:28] LABS: INR 4.26 (0.85-1.17); PROTIME 40.1 SECONDS (11.6-15.0)
--- NOTE | 2019-10-31 06:44 | NUR ---
POTASSIUM LOW 3.2 REPLACED PER ELECTROLYTE PROTOCOL 40 MEQ POWDER VIA OGT ORDER PLACED FOR REDRAW AT 1100
--- NOTE | 2019-10-31 07:00 | NUR ---
SEDATED ON VENT SKIN WARM AND DRY. ETT SECURE TO VENT. BILATERAL LUNG SOUNDS EQUAL. OG INFUSING WITH PULMOCARE INCREASED TO 30 ML HOUR. MONITOR SR AND PACER BEATS. SORIANO CATH PATENT DRAINING CLEAR MAKENNA URINE. HEAD OF BED ELEVATED 30 DEGREES. AWAKES TO STIMULATION.
[2019-10-31 07:13] LABS: HEPATITIS C ANTIBODY 0.1 S/CO RAT (0.0-0.9)
--- NOTE | 2019-10-31 09:00 | NUR ---
WAKES UP WHEN REPOSITIONED, HELPS WITH TURNING. HEAD OF BED ELEVATED 30 DEGREES. NO RESIDUAL PER OG TUBE. TUBE CHECKED FOR PLACEMENT WITH AIR BOLUS, AUDIBLE IN ABD.
--- NOTE | 2019-10-31 11:00 | NUR ---
AWAKES EASILY OBEYS COMMANDS. ETT SECURE NO DISTRESS, ASSIST WITH TURNING SELF.
--- NOTE | 2019-10-31 13:00 | NUR ---
NO CHANGE. RESTING COMFORTABLY.
--- NOTE | 2019-10-31 15:00 | NUR ---
SHAKING HEAD BACK AND FORTH. ENCOURAGE PATIENT TO REST. DIPRIVAN BOLUS GIVEN. OBEYING COMMANDS ON REQUEST. SUCTION MOD AMOUNT WHITE SPUTUM PER ETT. GOOD COUGH
--- NOTE | 2019-10-31 17:00 | NUR ---
WHEN AWAKE SHAKING HEAD BACK AND FORTH. ENCOURAGE TO RELAX AND GO BACK TO SLEEP. SUCTIONED. HEAD OF BED 30 DEGREES. GOOD URINE OUT PUT.
--- NOTE | 2019-10-31 18:19 | NUR ---
RESTING COMFORTABLY. NO DISTRESS
--- NOTE | 2019-10-31 21:00 | NUR ---
REPORT RECEIVED INITIAL ASSESSMENT COMPLETE. CM READING SR PACER SPIKES NOTED PT HAS PACER/DEFIB, ALARMS ON AND AUDIBLE NO ECTOPY. INTUBATED MECHANICALLY VENTED SEE RESP THERAPY FOR VENT CHANGES. BED LOW POSITION SIDE RAILS UP. CPOC
[2019-11-01] VITALS (38 sets, daily range): BP systolic 99–154; BP diastolic 59–87
--- NOTE | 2019-11-01 01:22 | NUR ---
PT THRASHING HEAD AROUND TRYING TO GET ETT OUT AND ATTEMPTING TO SIT UP INCREASED SEDATION SEE IV FLOWSHEET
--- NOTE | 2019-11-01 03:00 | NUR ---
REASSESSMENT COMPLETE NO CHNGES CPOC
--- NOTE | 2019-11-01 05:00 | NUR ---
COMPLETE CHG AND LINEN CHANGE PT THRASHING HEAD AROUND TRYING TO GET TO ETT INCREASED SEDATION
[2019-11-01 05:38] LABS: BASOPHILS 0 % (0-2); EOSINOPHILS 0 % (0-7); HEMATOCRIT 41.5 % (42.0-54.0); HEMOGLOBIN 13.1 g/dL (13.5-17.5); IMMATURE GRANULOCYTES 0.1 % (0-5); LYMPHOCYTES 9.2 % (15-50); MCH 28.7 pg (26.0-34.0); MCHC 31.6 g/dL (31.0-37.0); MCV 90.8 fL (80.0-100.0); MEAN PLATELET VOLUME 12.1 fL (7.4-10.4); MONOCYTES 6.6 % (2-11); NEUTROPHILS 84.1 % (40-80); PLATELET COUNT 160 10x3/uL (130-400); RBC 4.57 10x6/uL (4.20-6.10); RDW 14.5 % (11.5-14.5); WBC 13.4 10x3/uL (4.8-10.8)
[2019-11-01 05:50] LABS: INR 3.12 (0.85-1.17); PROTIME 31.6 SECONDS (11.6-15.0)
[2019-11-01 06:33] LABS: ALBUMIN 2.4 g/dL (3.4-5.0); ALKALINE PHOSPHATASE 80 U/L (30-120); ALT (SGPT) 31 U/L (10-68); BILIRUBIN - TOTAL 0.31 mg/dL (0.2-1.3); CALC OSMOLALITY 279 mosm/kg (275-300); CALCIUM 8.4 mg/dL (8.5-10.1); CARBON DIOXIDE 29.3 mmol/L (21.0-32.0); CHLORIDE - SERUM 103 mmol/L (98-107); GLUCOSE 139 mg/dL (74-106); MAGNESIUM - SERUM 2.3 mg/dL (1.8-2.4); PHOSPHOROUS 3.3 mg/dL (2.5-4.9); POTASSIUM - SERUM 5.1 mmol/L (3.5-5.1); PROTEIN - SERUM 6.1 g/dL (6.4-8.2); SODIUM 136 mmol/L (136-145); UREA NITROGEN 30 mg/dL (7-18); eGFR NON AFRICAN AMERICAN 81 mL/min (90-120)
--- NOTE | 2019-11-01 09:00 | NUR ---
DECREASED SEDATION DRIPRIVAN TO 20 MCG/KG/MIN FOR CPAP TRAIL ON VENT. PATIENT WOULD WAKE UP OBEY COMMANDS, THEN SHAKE HIS HEAD. NEEDS CONTAST ENCOURAGEMENT TO KEEP HIM CALM WHEN ON CPAP. RESTLESS IN BED. RESP RATE LESS THAN [address] GREATER THAN 500 BUT WOULD NOT CALM DOWN. SEDATION INCREASED BACK TO 40 MCG/KG/MIN. TO KEEP PATIENT CALM.
--- NOTE | 2019-11-01 12:00 | NUR ---
FEEDING TUBE CHECKED FOR PLACEMENT, 10CC RESIDUAL NOTED. AUDIBLE AIR BUBBLE HEARD IN ABD. PATIENT STILL WILL SIT UP IN BED AT TIMES, WHEN TOLD TO LAY BACK, WILL RETURN TO SLEEP.
[2019-11-02] VITALS (27 sets, daily range): BP systolic 89–138; BP diastolic 54–82
[2019-11-02 05:19] LABS: BASOPHILS 0 % (0-2); EOSINOPHILS 0.1 % (0-7); HEMATOCRIT 45.3 % (42.0-54.0); HEMOGLOBIN 14.3 g/dL (13.5-17.5); IMMATURE GRANULOCYTES 0.3 % (0-5); LYMPHOCYTES 10.4 % (15-50); MCH 28.7 pg (26.0-34.0); MCHC 31.6 g/dL (31.0-37.0); MEAN PLATELET VOLUME 11.9 fL (7.4-10.4); MONOCYTES 7.9 % (2-11); NEUTROPHILS 81.3 % (40-80); PLATELET COUNT 158 10x3/uL (130-400); RBC 4.98 10x6/uL (4.20-6.10); RDW 14.3 % (11.5-14.5); WBC 11.5 10x3/uL (4.8-10.8)
[2019-11-02 05:36] LABS: INR 2.67 (0.85-1.17)
[2019-11-02 05:39] LABS: ALBUMIN 2.7 g/dL (3.4-5.0); ALKALINE PHOSPHATASE 99 U/L (30-120); BILIRUBIN - TOTAL 0.43 mg/dL (0.2-1.3); CALC OSMOLALITY 278 mosm/kg (275-300); CALCIUM 8.6 mg/dL (8.5-10.1); CARBON DIOXIDE 36.1 mmol/L (21.0-32.0); CHLORIDE - SERUM 99 mmol/L (98-107); GLUCOSE 118 mg/dL (74-106); MAGNESIUM - SERUM 2.4 mg/dL (1.8-2.4); PHOSPHOROUS 3.7 mg/dL (2.5-4.9); POTASSIUM - SERUM 4.8 mmol/L (3.5-5.1); PROTEIN - SERUM 6.5 g/dL (6.4-8.2); SODIUM 135 mmol/L (136-145); UREA NITROGEN 34 mg/dL (7-18); eGFR NON AFRICAN AMERICAN 81 mL/min (90-120)
[2019-11-02 05:45] LABS: ALT (SGPT) 48 U/L (10-68)
--- NOTE | 2019-11-02 07:00 | NUR ---
REPORT RECEVIED FROM THE OFF GOING RN. SEE ASSESSMENT IN THE PTS FLOW SHEET. PT SEDATED ON THE VENITLATOR. SEE RT NOTEDS FOR DETAILS. VSS. CALL LIGHT IN REACH. WILL CONT POC.
--- NOTE | 2019-11-02 08:00 | NUR ---
SEDATION TURNED DOWN FOR CPAP TRIALS. PT AWAKE AND FOLLOWING COMMANDS. TOLERATING CPAP WELL SO FAR. WILL CONT POC.
--- NOTE | 2019-11-02 08:03 | NUR ---
STARTED PS TRIALS 02/22/40% @ [address] ALDANA.
--- NOTE | 2019-11-02 08:50 | NUR ---
PT AWAKE AND SEDATION TURNED OFF, PT BREATHING ONLY 3-5X'S/MIN. PT SITTING UP IN HIS BED AND ANSWERING QUESTIONS. RT NOTIFIED OF SLOW RATE. RESTARTED BACK ON SEDATION AND RT PLACED PT ON AC.
--- NOTE | 2019-11-02 09:49 | NUR ---
DR MCCAULEY AT THE PTS BEDSIDE. CONT POC.
--- NOTE | 2019-11-02 09:55 | NUR ---
FAMILY MEMBER SEBASTIAN AND PROVIDED A PASSWORD. UPDATE GIVEN.
--- NOTE | 2019-11-02 10:22 | NUR ---
DR PRIETO IN THE PTS ROOM .
--- NOTE | 2019-11-02 11:00 | NUR ---
REASSESSMENT COMPLETED. SEE FLOW SHEET.
--- NOTE | 2019-11-02 12:50 | NUR ---
Nutrition Follow-up: Pt remains intubated. TF off at time of visit this AM; noted pt failed CPAP trials. Diet: Pulmocare - goal rate 45 mL/hr Wt: 137# (10/31); 126.7# (10/27) Labs noted: Na 135, Glu 118, Alb 2.7 Meds noted: Coumadin, Lasix, Solumedrol, Humulin, NS @ 30, Diprivan, electrolyte protocol -TF per MD. Rec restart and advance to goal as medically feasible. -Monitor wt. -RD following.
--- NOTE | 2019-11-02 13:00 | NUR ---
PT VSS. ORAL CARE PROVIDED. WILL CONT POC.
--- NOTE | 2019-11-02 15:54 | NUR ---
DR MCCAULEY AT THE PTS BEDSIDE.
--- NOTE | 2019-11-02 17:00 | NUR ---
TF BAG CHANGED.
--- NOTE | 2019-11-02 19:00 | NUR ---
REPORT RECEIVED. PT SEDATED ON VENT. PT COUGHS FREQUENTLY WHEN AROUSED. SOFT WRIST RESTRAINTS IN PLACE, RT UPPER ARM PICC INFUSING, SEE IV FLOWSHEET. ASSESSMENT COMPLETED, SEE FLOWSHEET. WILL CONTINUE TO MONITOR.
--- NOTE | 2019-11-02 21:00 | NUR ---
PT SEDATED ON VENT, NO ACUTE DISTRESS NOTED. PT ATTEMPTING TO SIT UP MULTIPLE TIMES. WILL CONTINUE TO MONITOR.
--- NOTE | 2019-11-02 23:00 | NUR ---
REASSESSMENT COMPLETED, SEE FLOWSHEET. NO CHANGES IN PATIENT STATUS.
[2019-11-03] VITALS (25 sets, daily range): BP systolic 83–139; BP diastolic 54–94
--- NOTE | 2019-11-03 01:00 | NUR ---
PT SEDATED ON VENT, NO ACUTE DISTRESS NOTED.
--- NOTE | 2019-11-03 03:00 | NUR ---
REASSESSMENT COMPLETED, SEE FLOWSHEET.
--- NOTE | 2019-11-03 05:00 | NUR ---
PT SEDATED ON VENT, CONTINUES TO GESTURE TO REMOVE ETT. EDUCATION PROVIDED ON VENTILATION.
[2019-11-03 06:41] LABS: CALC OSMOLALITY 276 mosm/kg (275-300); CALCIUM 8.4 mg/dL (8.5-10.1); CARBON DIOXIDE 35.3 mmol/L (21.0-32.0); CHLORIDE - SERUM 97 mmol/L (98-107); GLUCOSE 108 mg/dL (74-106); POTASSIUM - SERUM 5.1 mmol/L (3.5-5.1); SODIUM 133 mmol/L (136-145); UREA NITROGEN 40 mg/dL (7-18); eGFR NON AFRICAN AMERICAN 81 mL/min (90-120)
[2019-11-03 06:44] LABS: BASOPHILS 0 % (0-2); EOSINOPHILS 0 % (0-7); HEMATOCRIT 41.6 % (42.0-54.0); HEMOGLOBIN 13.4 g/dL (13.5-17.5); IMMATURE GRANULOCYTES 0.4 % (0-5); LYMPHOCYTES 9.5 % (15-50); MCH 28.8 pg (26.0-34.0); MCHC 32.2 g/dL (31.0-37.0); MCV 89.3 fL (80.0-100.0); MEAN PLATELET VOLUME 11.6 fL (7.4-10.4); MONOCYTES 9.4 % (2-11); NEUTROPHILS 80.7 % (40-80); PLATELET COUNT 168 10x3/uL (130-400); RBC 4.66 10x6/uL (4.20-6.10); RDW 14.5 % (11.5-14.5); WBC 12.9 10x3/uL (4.8-10.8)
--- NOTE | 2019-11-03 07:00 | NUR ---
RECEIVED BEDSIDE REPORT ON PATIENT. PATIENT ON VENT, ATTEMPTING TO SIT UP, TALKED TO PATIENT AND PATIENT FOLLOWING COMMANDS BUT DIFFICULT TO CONSOLE. RIGHT UPPER PICC LINE INFUSING NS AT 30 ML/HR, DOBUTAMINE AT 5 MCG/KG/MIN, FENTANYL AT 300 MCG/HR AND PROPOFOL AT 20 MCG/KG/MIN. SCDS IN PLACE. SPO2 - 100% ON VENT, SETTINGS AC 16, FIO2 40%, TV 500, PEEP 5. CM - SR WITH PACS RATE 84. VSS. PATIENT TURNED AND REPOSITIONED IN BED. HEAD TO TOE ASSESSMENT COMPLETED.
--- NOTE | 2019-11-03 08:47 | NUR ---
PATIENT GIVEN MORNING MEDS PER JUL. TURNED AND REPOSITIONED IN BED. VSS.
--- NOTE | 2019-11-03 09:16 | NUR ---
DR. MATA AT ROOM UPDATED AND EXAMINES PATIENT. ORDERS COREG AND LISINIPRIL DOSE TO BE HALFED.
--- NOTE | 2019-11-03 09:36 | NUR ---
DR. MCCAULEY AT ROOM UPDATED AND EXAMINES PATIENT. TO TRY CPAP TRAIL AGAIN TODAY. RT NOTIFIED.
--- NOTE | 2019-11-03 10:00 | NUR ---
FENTANYL STOPPED PENDING CPAP TRAIL AWAITING RT.
--- NOTE | 2019-11-03 10:30 | NUR ---
PATIENT PLACED ON CPAP TRIAL BY RT, SEDATION STOPPED FOR TRIAL. VSS. TUBE FEEDING STOPPED PENDING CPAP TRIAL FOR POSSIBLE EXTUBATION.
--- NOTE | 2019-11-03 11:03 | NUR ---
STARTED PS TRIALS @1029. 02/[address] MCCAULEY.
--- NOTE | 2019-11-03 12:41 | NUR ---
SPOKE TO DR. MCCAULEY REGARDING PATIENTS HR IN THE 120S AND APNEA DURING CPAP TRAIL, TO PLACE BACK ON RATE AND START PRECIDEX. RT NOTIFIED.
--- NOTE | 2019-11-03 12:49 | NUR ---
PATIENT SELF EXTUBATED SELF, PLACED ON NC AT 4 LPM, HR - 110, RR - 17, SPO2 94%. DR. MCCAULEY AND RT AT ROOM.
--- NOTE | 2019-11-03 13:10 | NUR ---
PATIENT ALERT AND ORIENTED X 4, VSS. NO NEEDS AT THIS TIME.
--- NOTE | 2019-11-03 13:38 | NUR ---
PATIENTS SON LUISITO AT ROOM UPDATED AND QUESTIONS ANSWERED. VSS. NO NEEDS AT THIS TIME.
--- NOTE | 2019-11-03 13:50 | NUR ---
PT SELF EXTUBATED @ APPROX. 1240 HRS AND PLACED ON 4LNC. DR MCCAULEY SAW THE PT AND LOWERED THE FLOW TO 3L TO KEEP SPO2 @ 88%. PT IS RESTING COMFORTABLY W/FAMILY MEMBER @ BEDSIDE
--- NOTE | 2019-11-03 14:32 | NUR ---
SPEECH THERAPIST AT ROOM FOR BEDSIDE SWALLOW STUDY, POST EXTUBATION.
--- NOTE | 2019-11-03 15:00 | NUR ---
REASSESSMENT COMPLETED. VSS. NO NEEDS AT THIS TIME. MEDS PER MAR WITH NECTAR THICK LIQUIDS.
--- NOTE | 2019-11-03 16:51 | NUR ---
PATIENT GIVEN DINNER TRAY AND MEDS PER MAR. VSS.
--- NOTE | 2019-11-03 17:38 | NUR ---
PATIENT ATE APPROXIMATELY 50% OF DINNER, VSS. NO NEEDS AT THIS TIME.
--- NOTE | 2019-11-03 19:20 | NUR ---
PT RECEIVED IN BED WITH EYES OPEN. ALERT AND ORIENTED TO ASSESSMENT QUESTIONS. NO NEEDS OR COMPLAINTS MADE KNOWN. CALL LIGHT IN REACH. WILL CONTINUE TO OBSERVE.
--- NOTE | 2019-11-03 22:03 | NUR ---
PT WATCHING TV. RECEIVED SCHEDULED MEDICATIONS PER MAR. TOLERATED WELL.
--- NOTE | 2019-11-03 23:30 | NUR ---
PT WATCHING TV. NO S/S OF DISTRESS NOTED. NO NEEDS MADE KNOWN. CALL LIGHT IN REACH. WILL CONTINUE TO OBSERVE.
[2019-11-04] VITALS (24 sets, daily range): BP systolic 105–141; BP diastolic 61–105
--- NOTE | 2019-11-04 03:51 | NUR ---
PT WITH EYES OPEN. NO S/S OF DISTRESS. NO NEEDS MADE KNOWN. CALL LIGHT IN REACH. WILL CONTINUE TO OBSERVE.
[2019-11-04 05:37] LABS: BASOPHILS 0.1 % (0-2); EOSINOPHILS 0.1 % (0-7); HEMATOCRIT 44.5 % (42.0-54.0); HEMOGLOBIN 14.4 g/dL (13.5-17.5); IMMATURE GRANULOCYTES 0.6 % (0-5); LYMPHOCYTES 6.5 % (15-50); MCH 28.7 pg (26.0-34.0); MCHC 32.4 g/dL (31.0-37.0); MCV 88.8 fL (80.0-100.0); MEAN PLATELET VOLUME 11.8 fL (7.4-10.4); MONOCYTES 9.9 % (2-11); NEUTROPHILS 82.8 % (40-80); PLATELET COUNT 179 10x3/uL (130-400); RBC 5.01 10x6/uL (4.20-6.10); RDW 14.5 % (11.5-14.5); WBC 13.8 10x3/uL (4.8-10.8)
[2019-11-04 05:48] LABS: ALBUMIN 2.7 g/dL (3.4-5.0); ALKALINE PHOSPHATASE 86 U/L (30-120); ALT (SGPT) 76 U/L (10-68); BILIRUBIN - TOTAL 0.69 mg/dL (0.2-1.3); CALC OSMOLALITY 278 mosm/kg (275-300); CALCIUM 8.4 mg/dL (8.5-10.1); CARBON DIOXIDE 32.3 mmol/L (21.0-32.0); CHLORIDE - SERUM 100 mmol/L (98-107); GLUCOSE 120 mg/dL (74-106); POTASSIUM - SERUM 4.6 mmol/L (3.5-5.1); PROTEIN - SERUM 6.5 g/dL (6.4-8.2); SODIUM 135 mmol/L (136-145); UREA NITROGEN 36 mg/dL (7-18); eGFR NON AFRICAN AMERICAN 81 mL/min (90-120)
--- NOTE | 2019-11-04 06:49 | NUR ---
PT RECEIVED CHG BATH TOLERATED WELL. LINENS CHANGED. DRESSING TO RIGHT UPPER ARM PICC CHANGED PER PROTOCOL. CALL LIGHT IN REACH. WILL CONTINUE TO OBSERVE.
--- NOTE | 2019-11-04 09:16 | NUR ---
AM MEDS GIVEN WITH NO ISSUES. PHYSICAL THEARPY ASSISTED THE PT OOB INTO THE BEDSIDE CHAIR. PER PHYSICAL THERAPY, PT SLIGHTLY WEAK BUT TOLERATED WELL. VSS. CALL LIGHT IN REACH. WILL CONT POC.
--- NOTE | 2019-11-04 12:43 | NUR ---
Nutrition Follow-up: Self extubated yesterday. PEDIATRIC INTENSIVE PHYSICIAN reports pt ok for mech soft with nectar thick liquids but does not like it. Pt reports eating only a few bites of breakfast this AM. Declines nutrition supplements. Unsure of last BM. Diet: Regular, Mech Soft, [place] Thick Liquids Wt: 128.9# (11/03); 126.7# (10/27) Labs noted: Na 135, Glu 120, Ca 8.4, Alb 2.7 Meds noted: Coumadin, Lasix, Solumedrol, NS @ 30, Protonix, electrolyte protocol -Encourage PO intake and honor food preferences within diet restrictions. -Monitor wt. -RD following.
--- NOTE | 2019-11-04 13:54 | NUR ---
DR MATA AT THE PTS BEDSIDE. OK TO DC FC.
--- NOTE | 2019-11-04 14:36 | NUR ---
[facility] IT INTERN AT THE PTS BEDSIDE. WEEN DOBUTAMINE OFF.
--- NOTE | 2019-11-04 14:53 | NUR ---
DR MCCAULEY AT THE PTS BEDSIDE.
--- NOTE | 2019-11-04 17:00 | NUR ---
DINNER TRAY PROVIDED FOR THE PT. WILL CONT POC.
--- NOTE | 2019-11-04 17:35 | NUR ---
FC DC'D PER DR PRIETO. URINAL PROVIDED.
--- NOTE | 2019-11-04 19:00 | NUR ---
PT RECEIVED IN BED WITH EYES OPEN. ALERT AND ORIENTED TO ASSESSMENT QUESTIONS. VITAL SIGNS STABLE. DENIES PAIN. NO NEEDS MADE KNOWN. CALL LIGHT IN REACH. WILL CONTINUE TO OBSERVE.
--- NOTE | 2019-11-04 20:46 | NUR ---
SCHEDULED MEDICATIONS GIVEN, PT TOLERATED WELL. 275MLS OF URINE NOTED IN URINAL, EMPTIED AND IN REACH. FRESH NECTAR THICK WATER PROVIDED. WILL CONTINUE TO OBSERVE.
--- NOTE | 2019-11-04 23:45 | NUR ---
URINAL EMPTIED WITH 250ML OUTPUT NOTED. NO NEEDS MADE KNOWN. WILL CONTINUE TO OBSERVE.
[2019-11-05] VITALS (15 sets, daily range): BP systolic 102–127; BP diastolic 68–96
--- NOTE | 2019-11-05 01:17 | NUR ---
PT WITH EYES OPEN. NO S/S OF DISTRESS. CALL LIGHT IN REACH. WILL CONTINUE TO OBSERVE.
--- NOTE | 2019-11-05 03:15 | NUR ---
PT WITH EYES OPEN. NO S/S OF DISTRESS. CALL LIGHT IN REACH. NO NEEDS MADE KNOWN.
[2019-11-05 05:48] LABS: BASOPHILS 0.1 % (0-2); EOSINOPHILS 2.9 % (0-7); HEMATOCRIT 43.6 % (42.0-54.0); HEMOGLOBIN 14.3 g/dL (13.5-17.5); IMMATURE GRANULOCYTES 1.1 % (0-5); LYMPHOCYTES 14.8 % (15-50); MCH 29.2 pg (26.0-34.0); MCHC 32.8 g/dL (31.0-37.0); MEAN PLATELET VOLUME 11.3 fL (7.4-10.4); MONOCYTES 12.8 % (2-11); NEUTROPHILS 68.3 % (40-80); PLATELET COUNT 156 10x3/uL (130-400); RDW 14.6 % (11.5-14.5); WBC 13.9 10x3/uL (4.8-10.8)
[2019-11-05 06:13] LABS: CALC OSMOLALITY 278 mosm/kg (275-300); CALCIUM 8.4 mg/dL (8.5-10.1); CARBON DIOXIDE 30.5 mmol/L (21.0-32.0); CHLORIDE - SERUM 102 mmol/L (98-107); CREATININE - SERUM 0.9 mg/dL (0.6-1.3); GLUCOSE 92 mg/dL (74-106); MAGNESIUM - SERUM 2.1 mg/dL (1.8-2.4); PHOSPHOROUS 2.5 mg/dL (2.5-4.9); SODIUM 136 mmol/L (136-145); UREA NITROGEN 32 mg/dL (7-18); eGFR NON AFRICAN AMERICAN > 90 mL/min (90-120)
--- NOTE | 2019-11-05 06:14 | NUR ---
CHG BATH GIVEN WITH COMPLETE LINEN CHANGE PROVIDED. TOLERATED WELL.
--- NOTE | 2019-11-05 07:00 | NUR ---
REPORT RECIEVED FROM THE OFF GOING RN. SEE ASSESSMENT IN THE PTS FLOW SHEET. PT DENIES NEEDS AT THIS TIME. VSS. CALL LIGHT IN REACH. WILL CONT POC.
--- NOTE | 2019-11-05 08:15 | NUR ---
MEAL TRAY PROVIDED FOR THE PT. ASPIRATION PRECAUTION COMPLETED. CALL LIGHT IN REACH. WILL CONT POC.
--- NOTE | 2019-11-05 08:59 | NUR ---
AM MEDICATION GIVEN WITH NO ISSUES.
--- NOTE | 2019-11-05 09:24 | NUR ---
PT AMBULATED WITH PHYSICAL THERAPY. SLOW BUT STEADY GAIT NOTED. VSS. PT TOLERATED WELL. PT NOW SITTING OOB IN HIS BEDSIDE CHAIR.
--- NOTE | 2019-11-05 10:13 | NUR ---
DR MCCAULEY IN THE PTS OK TO TRANSFER TO THE FLOOR.
--- NOTE | 2019-11-05 10:22 | NUR ---
DR MCCAULEY IN THE PTS ROOM. OK TO TRANSFER TO THE FLOOR.
--- NOTE | 2019-11-05 12:38 | NUR ---
DR HOWARD IN THE PTS ROOM.
--- NOTE | 2019-11-05 12:49 | NUR ---
PT ASSISTED BACK INTO BED. PT STATES "I HAVENT SLEPT IN 48 HOURS." LIGHTS TURNED OFF AND RECOMMENDED TO THE PT FOR HIM TO REST. CALL LIGHT IN REACH. WILL CONT POC.
--- NOTE | 2019-11-05 17:00 | NUR ---
PT REFUSED HIS DINNER BUT REQUESTED AN ICE CREAM. IT WAS PROVIDED. CALL LIGHT IN REACH. WILL CONT POC.
[2019-11-06] VITALS: BP 104/69
--- NOTE | 2019-11-06 01:26 | NUR ---
PT RESTING IN BED. EYES CLOSED. NO SIGNS OF DISTRESS. BREATHING EVEN AND UNLABORED. IV SITE RT UPPER ARM PICC. DRESSING CLEAN DRY AND ITNACT. NO SIGNS OF INFECTION. 2LO2 NASAL CANNULA. BILATERAL ARM BRUISING PRESENT. BOWEL SOUNDS ACTIVE. LT CHEST DEFIB PRESENT. NO LOWER LEG SWELLING PRESENT. WILL CONTINUE PLAN OF CARE. CALL LIGHT IN REACH. BED LOWERED AND LOCKED. BED RAILS UPX2.
[2019-11-06 03:00] VITALS: BP 98/46
[2019-11-06 04:00] VITALS: BP 92/64
--- NOTE | 2019-11-06 04:17 | NUR ---
I have reviewed this patient and I concur with the Shift Assessment completed by the Licensed Practical Nurse today this shift.
[2019-11-06 06:25] LABS: INR 2.39 (0.85-1.17); PROTIME 25.7 SECONDS (11.6-15.0)
--- NOTE | 2019-11-06 07:54 | NUR ---
0710 BEDSIDE REPORT RECEIVED FROM SHAWN SILVERMAN NURSE INTRODUCED MYSELF TO PATINT AND UPDATED WHITE BOARD
[2019-11-06 08:00] VITALS: BP 103/74
[2019-11-06 11:00] VITALS: BP 158/81
[2019-11-06 20:00] VITALS: BP 93/70
--- NOTE | 2019-11-06 20:00 | NUR ---
PATIENT SITTING UP ON SIDE OF BED. NO S/S OF ACUTE DISTRESS. NO C/O AT THIS TIME. PATIENT IS CONFUSED AND IS TALKING TO THE SCD MACHINE "AUGUST". PATIENT STATED THAT THE ICU NURSE THAT BROUGHT HIM TO THE FLOOR WOULDN'T TAKE HIM "TO THE LIQUOR STORE SO I COULD BUY METH AND DUCE". I TOLD HIM THAT NURSES DON'T DRINK AND WOULDN'T HELP HIM BUY DRUGS. PATIENT IS ON 2L NASAL CANNULA. PATIENT HAS PICC IN RIGHT UPPER ARM, NORMAL SALINE @ 30 ML/HR. IV IS PATENT WITHOUT REDNESS, SWELLING, OR TENDERNESS. PATIENT USES URINAL AND IS UP WITH ASSISTANCE TO THE BATHROOM. CALL LIGHT WITHIN REACH. WILL CONTINUE TO MONITOR.
[2019-11-07] VITALS: BP 135/75
--- NOTE | 2019-11-07 02:32 | NUR ---
I have reviewed this patient and I concur with the Shift Assessment completed by the Licensed Practical Nurse today this shift.
[2019-11-07 04:00] VITALS: BP 126/70
[2019-11-07 05:21] LABS: BASOPHILS 0.2 % (0-2); EOSINOPHILS 1.9 % (0-7); HEMATOCRIT 42.4 % (42.0-54.0); HEMOGLOBIN 14.2 g/dL (13.5-17.5); IMMATURE GRANULOCYTES 1.2 % (0-5); LYMPHOCYTES 19.7 % (15-50); MCH 29.3 pg (26.0-34.0); MCHC 33.5 g/dL (31.0-37.0); MCV 87.4 fL (80.0-100.0); MONOCYTES 10.5 % (2-11); NEUTROPHILS 66.5 % (40-80); PLATELET COUNT 147 10x3/uL (130-400); RBC 4.85 10x6/uL (4.20-6.10); RDW 14.2 % (11.5-14.5); WBC 12.5 10x3/uL (4.8-10.8)
[2019-11-07 05:48] LABS: CALCIUM 8.3 mg/dL (8.5-10.1); CARBON DIOXIDE 25.7 mmol/L (21.0-32.0); CREATININE - SERUM 1.1 mg/dL (0.6-1.3); MAGNESIUM - SERUM 1.9 mg/dL (1.8-2.4); PHOSPHOROUS 2.3 mg/dL (2.5-4.9); POTASSIUM - SERUM 3.7 mmol/L (3.5-5.1)
[2019-11-07 08:38] VITALS: BP 128/90
[2019-11-07] MEDS ORDERED: COUMADIN3 MG PO (10:56)
[2019-11-07] MEDS ORDERED: LISINOPRIL5 MG PO (10:56)
[2019-11-07] MEDS ORDERED: FLUTICASONE PRO16 GM NASAL (10:57)
[2019-11-07] MEDS ORDERED: LASIX40 MG PO (10:57)
[2019-11-07] MEDS ORDERED: SINGULAIR10 MG PO (10:57)
[2019-11-07] MEDS ORDERED: K-DUR20 MEQ PO (11:01)
[2019-11-07] MEDS ORDERED: VIBRAMYCIN 100100 MG PO (11:04)
[2019-11-07] MEDS ORDERED: PROAIR HFA8.5 G1 INH (11:07)
[2019-11-07 13:07] VITALS: BP 90/51
[2019-11-07 20:00] VITALS: BP 117/75
--- NOTE | 2019-11-07 20:00 | NUR ---
PATIENT SITTING IN WHEELCHAIR WATCHING TV. NO S/S OF ACUTE DISTRESS. PATIENT C/O WANTING TO GO HOME. AT THIS TIME CASE MANAGEMENT IS TRYING TO FIND HIM A RIDE HOME. PATEINT IS ON ROOM AIR. PATIENT HAS NO IV ACCESS. PATEINT IS UP ADLIB. CALL LIGHT WITHIN REACH. WILL CONTINUE TO MONITOR.
[2019-11-08] VITALS: BP 143/34
--- NOTE | 2019-11-08 02:16 | NUR ---
I have reviewed this patient and I concur with the Shift Assessment completed by the Licensed Practical Nurse today this shift.
[2019-11-08 04:00] VITALS: BP 92/74
[2019-11-08 05:53] LABS: HEMATOCRIT 41.5 % (42.0-54.0); HEMOGLOBIN 13.7 g/dL (13.5-17.5); LYMPHOCYTES 28.7 % (15-50); MCH 28.7 pg (26.0-34.0); MEAN PLATELET VOLUME 11.7 fL (7.4-10.4); NEUTROPHILS 57.5 % (40-80); PLATELET COUNT 137 10x3/uL (130-400); RBC 4.77 10x6/uL (4.20-6.10); RDW 14.4 % (11.5-14.5); WBC 13.8 10x3/uL (4.8-10.8)
[2019-11-08 06:02] LABS: INR 3.12 (0.85-1.17); PROTIME 31.5 SECONDS (11.6-15.0)
[2019-11-08 06:05] LABS: ANION GAP 12.2 mmol/L (8-16); CALCIUM 8.7 mg/dL (8.5-10.1); CARBON DIOXIDE 26.5 mmol/L (21.0-32.0); CREATININE - SERUM 1.3 mg/dL (0.6-1.3); POTASSIUM - SERUM 3.7 mmol/L (3.5-5.1)
[2019-11-08 06:10] LABS: PHOSPHOROUS 3.1 mg/dL (2.5-4.9)
[2019-11-08 07:15] VITALS: BP 98/61
--- NOTE | 2019-11-08 12:36 | NUR ---
DR MATA STATED PATIENT COULD GO HOME. PATIENT STATED MOTHER CHANGED HER MIND AND THAT HE COULD GO TO HER HOUSE THAT IT WAS ALL A MISUNDERSTANDING. PT AND PSYCH EVALUATIONS DONE. MEGAN WITH CASE MANAGEMENT STATED THAT I COULD DO HIS DISCHARGE PAPERS AND SEND HIM HOME. WE WOULD CALL HIM A TAXI. THIS HAS BEEN DONE. PATIENT DISCHARGE INSTRUCTIONS GIVEN AND HER VERBALIZED UNDERSTANDING. WILL WHEEL DOWNSTAIRS WHEN TAXI ARRIVES.
--- NOTE | 2019-11-08 12:38 | NUR ---
rehab prescreen: thank you for this eval, this patient could possible meet for irf but we need to detumine his level of need, he hasnt had therapy in 3 days andthen he was walking at 200 ft win min assist which maybe too high function. need therapy to eval him and see how much need he requires, if he isnt able to reurn home with guidance regarding saftey may need to look into intermodal truck driver care. will follow and discuss him with [facility] for rehabilitation team meeting tomorrow. thank you once again for this eval. nathan marquez lpn clinical liasion
--- NOTE | 2019-11-08 23:47 | MORECARE ---
CASE MANAGEMENT DISCHARGE SUMMARY PATIENT: CLIFF PINEDA ALLI UNIT: [id number] ADM DATE: 10/28/19 AGE: 59 : 62 SEX: M ROOM/BED: D.2227 AUTHOR: YAEL,DOC PHYSICIAN: REFERRING PHYSICIAN: KIT PHELPS MD DATE OF SERVICE: 11/08/19 Discharge Plan Patient Name: CLIFF PINEDA Facility: [facility]:[place] : 1960 Planned Disposition: Anticipated Discharge Date: Discharge Date: 11/08/2019 Expected LOS: Initial Reviewer: [email or web address] Initial Review Date: 10/28/2019 Generated: 11/09/19 12:47 am Comments DCP- Discharge Planning Updated by [email or web address]: Paola Wu on 11/08/19 10:[address] LATE ENTRY 11/07/19 CM received notice that patient can't get transportation home. Nurse states that family is refusing to pick patient up. YUDY contacted Penelope patient's mother that he had been discharged and she stated that she could pick him because she doesn't drive. She stated that the patient's son will have to pick him up and she can't get in touch with him. Patient's mother states that she can't take care of him and that she is already taking care of her that 90+ and blind. Penelope stated that "no one wants anything to do with him". YUDY called and spoke with Meena patient's daughter and she stated that she was out of town this weekend and that we would need to speak with Kevin patient's son that he takes care of things for patient. Kevin called to speak to YUDY. YUDY explained that the patient isn't confused and that he is medically stable for discharge. Kevin stated that he and Penelope had seen Dr. Rivas and he had told them that the patient would be evaluated and placed somewhere when discharged. YUDY explained that the patient is now able to make his own decisions and he can't be placed anywhere without his consent. YUDY explained that the patient C02 levels was high when he was admitted and that can cause confusion. YUDY explained that a tox screen was completed and was neg. Kevin stated that they don't test for everything. Kevin then said we will figure out something and hung up the phone. CM called William Bennettlogan TANG regarding situation and he stated to order james / psych eval and rehab prescreen. and to keep patient over night. CM notified nursing and patient of situation. DCP- Discharge Planning Updated by [email or web address]: Paola Wu on 10/30/19 9:[address] Patient Name: CLIFF PINEDA Admission Status: ER Accout number: [id number] Admission Date: 10-28-2019 : 1960 Admission Diagnosis:SEPSIS, UNSPECIFIED ORGANISM Attending: KIT PHELPS Current LOS: 2 Anticipated DC Date: Planned Disposition: Primary Insurance: MEDICAID [place] Discharge Planning Comments: CM spoke with patient's daughter Meena to complete initial dc planning assessment. CM educated patient's daughter on the CM role and verbal consent given by patient to complete assessment. Patient lives at home with family (elderly parents). Patient is independent. At discharge patient plans to return home and feels this is a safe discharge. CM discussed availability of home health, rehab services, and medical equipment. Patient will have family to transport home. Uncertain at this time what patient's d/c needs will be currently on vent. CM will continue to follow and will assist as needed with dc plans/needs. Cupola Operator Insulation: Paola Jazmin DCPIA - Discharge Planning Initial Assessment Updated by [email or web address]: Paola Jazmin on 10/30/19 10:09 pm * Is the patient Alert and Oriented? No * How many steps to enter\\exit or inside your home? * PCP Rob * [facility] * Preadmission Environment Home with Family * ADLs Independent * Equipment None * List name and contact numbers for known caregivers / representatives who currently or will assist patient after discharge: MEENA - DAUGHTER - [phone] KEVIN PINEDA - SON - [phone] PENELOPE PINEDA - MOTHER -[phone] * Verbal permission to speak to the caregivers and representatives has been obtained from the patient. N/A * Community resources currently utilized None * Additional services required to return to the preadmission environment? No * Can the patient safely return to the preadmission environment? Yes * Has this patient been hospitalized within the prior 30 days at any hospital? No Last DP export: 10/30/19 9:14 p Patient Name: CLIFF PINEDA Page [id number] at 2347 All edits/amendments must be made on the electronic document DICTATION DATE: 11/08/192346 CITY ROUTE DRIVER: LUIS FERNANDO 11/08/192346 RPT#: [id number] DC DATE:11/08/19 STATUS: DIS IN [facility] [address] [place] [address] END OF REPORT
--- NOTE | 2019-11-08 23:54 | MORECARE ---
CASE MANAGEMENT DISCHARGE SUMMARY PATIENT: CLIFF PINEDA ALLI UNIT: [id number] ADM DATE: 10/28/19 AGE: 59 : 62 SEX: M ROOM/BED: D.2227 AUTHOR: YAEL,DOC PHYSICIAN: REFERRING PHYSICIAN: KIT PHELPS MD DATE OF SERVICE: 11/08/19 Discharge Plan Patient Name: CLIFF PINEDA Facility: [facility]:[place] : 1960 Planned Disposition: Anticipated Discharge Date: Discharge Date: 11/08/2019 Expected LOS: Initial Reviewer: [email or web address] Initial Review Date: 10/28/2019 Generated: 11/09/19 12:53 am Comments DCP- Discharge Planning Updated by [id number]: Paola Wu on 11/08/19 10:[address] Patient was seen this am by Psych with recommendations of outpatient talk therapy. CM received a call from Dr. Gould this am that patient and his mother had spoken. If patient can find a way home then he can come home. CM got approval for [employer] $45.00. CM will continue to follow and assist as needed with discharge planning / needs. DCP- Discharge Planning Updated by [email or web address]: Paola Wu on 11/08/19 10:[address] LATE ENTRY 11/07/19 CM received notice that patient can't get transportation home. Nurse states that family is refusing to pick patient up. YUDY contacted Penelope patient's mother that he had been discharged and she stated that she could pick him because she doesn't drive. She stated that the patient's son will have to pick him up and she can't get in touch with him. Patient's mother states that she can't take care of him and that she is already taking care of her that 90+ and blind. Penelope stated that "no one wants anything to do with him". CM called and spoke with Meena patient's daughter and she stated that she was out of town this weekend and that we would need to speak with Kevin patient's son that he takes care of things for patient. Kevin called to speak to CM. YUDY explained that the patient isn't confused and that he is medically stable for discharge. Kevin stated that he and Penelope had seen Dr. Rivas and he had told them that the patient would be evaluated and placed somewhere when discharged. CM explained that the patient is now able to make his own decisions and he can't be placed anywhere without his consent. CM explained that the patient C02 levels was high when he was admitted and that can cause confusion. CM explained that a tox screen was completed and was neg. Kevin stated that they don't test for everything. Kevin then said we will figure out something and hung up the phone. CM called William Martinez APN regarding situation and he stated to order james / psych eval and rehab prescreen. and to keep patient over night. CM notified nursing and patient of situation. DCP- Discharge Planning Updated by [email or web address]: Paola Wu on 10/30/19 9:[address] Patient Name: CLIFF PINEDA Admission Status: ER Accout number: [id number] Admission Date: 10-28-2019 : 1960 Admission Diagnosis:SEPSIS, UNSPECIFIED ORGANISM Attending: KIT PHELPS Current LOS: 2 Anticipated DC Date: Planned Disposition: Primary Insurance: MEDICAID [place] Discharge Planning Comments: CM spoke with patient's daughter Meena to complete initial dc planning assessment. CM educated patient's daughter on the CM role and verbal consent given by patient to complete assessment. Patient lives at home with family (elderly parents). Patient is independent. At discharge patient plans to return home and feels this is a safe discharge. CM discussed availability of home health, rehab services, and medical equipment. Patient will have family to transport home. Uncertain at this time what patient's d/c needs will be currently on vent. CM will continue to follow and will assist as needed with dc plans/needs. Electrician Second: Paola Wu DCPIA - Discharge Planning Initial Assessment Updated by [id number]: Paola Wu on 10/30/19 10:09 pm * Is the patient Alert and Oriented? No * How many steps to enter\\exit or inside your home? * PCP Rob * [facility] * Preadmission Environment Home with Family * ADLs Independent * Equipment None * List name and contact numbers for known caregivers / representatives who currently or will assist patient after discharge: MEENA - DAUGHTER - [phone] KEVIN PINEDA - SON - [phone] PENELOPE PINEDA - MOTHER -[phone] * Verbal permission to speak to the caregivers and representatives has been obtained from the patient. N/A * Community resources currently utilized None * Additional services required to return to the preadmission environment? No * Can the patient safely return to the preadmission environment? Yes * Has this patient been hospitalized within the prior 30 days at any hospital? No Last DP export: 11/08/19 10:47 p Patient Name: CLIFF PINEDA Page 55299 at 2354 All edits/amendments must be made on the electronic document DICTATION DATE: 11/08/192352 TRAINING PROFESSIONAL: LUIS FERNANDO 11/08/192352 RPT#: [id number] DC DATE:11/08/19 STATUS: DIS IN [facility] [address] [place] [address] END OF REPORT
== END 2019-11-08 13:08 | disposition home or self-care (01) | DRG 870 ==
LOC: D.ER 00:32 → D.CVICU 02:06 → D.MS 11-05 19:35
PROVIDERS: Family Medicine; Internal Medicine Pulmonary Disease; ADMIT Emergency Medicine; ATTEND Emergency Medicine
PROC: 5A1955Z Respiratory Ventilation, Greater than 96 Consecutive Hours (ICD-10-PCS; principal; 2019-10-29)
PROC: 0BH17EZ Insertion of Endotracheal Airway into Trachea, Via Natural or Artificial Opening (ICD-10-PCS; 2019-10-29)
PROC: 05HY33Z Insertion of Infusion Device into Upper Vein, Percutaneous Approach (ICD-10-PCS; 2019-10-30)
DX: A41.9 Sepsis, unspecified organism (principal); J96.01 Acute respiratory failure with hypoxia; J18.9 Pneumonia, unspecified organism; I50.21 Acute systolic (congestive) heart failure; I21.A1 Myocardial infarction type 2; J96.02 Acute respiratory failure with hypercapnia; N17.9 Acute kidney failure, unspecified; J44.1 Chronic obstructive pulmonary disease with (acute) exacerbation; E87.1 Hypo-osmolality and hyponatremia; I82.402 Acute embolism and thrombosis of unspecified deep veins of left lower extremity; E87.2 Acidosis; D64.9 Anemia, unspecified; I11.0 Hypertensive heart disease with heart failure; I50.9 Heart failure, unspecified; I25.10 Atherosclerotic heart disease of native coronary artery without angina pectoris; F41.9 Anxiety disorder, unspecified; E87.5 Hyperkalemia; R63.4 Abnormal weight loss; J30.9 Allergic rhinitis, unspecified; Z95.0 Presence of cardiac pacemaker; F17.200 Nicotine dependence, unspecified, uncomplicated; K21.9 Gastro-esophageal reflux disease without esophagitis; I70.219 Atherosclerosis of native arteries of extremities with intermittent claudication, unspecified extremity; I25.5 Ischemic cardiomyopathy; E78.5 Hyperlipidemia, unspecified

== ENCOUNTER 2020-02-01 10:17 | Inpatient (IN) | payer MEDICAID ==
[2020-02-01] VITALS (11 sets, daily range): BP systolic 110–155; BP diastolic 77–102; BMI 17.2
[~2020-02-01] VITALS: Ht 177.8 cm; Wt 54.4 kg
[~2020-02-01 10:17] MED LIST changes: +COUMADIN3 MG PO; +FLUTICASONE PRO16 GM NASAL; +K-DUR20 MEQ PO; +LISINOPRIL5 MG PO; +PROAIR HFA8.5 G1 INH; +SINGULAIR10 MG PO; +VIBRAMYCIN 100100 MG PO
[2020-02-01] MEDS ORDERED: PRAVASTATIN SOD10 MG PO (10:23)
[2020-02-01 11:10] LABS: BASOPHILS 0.2 % (0-2); EOSINOPHILS 0.4 % (0-7); HEMATOCRIT 40.9 % (42.0-54.0); HEMOGLOBIN 13.2 g/dL (13.5-17.5); IMMATURE GRANULOCYTES 0.3 % (0-5); LYMPHOCYTES 11.8 % (15-50); MCH 29.3 pg (26.0-34.0); MCHC 32.3 g/dL (31.0-37.0); MCV 90.9 fL (80.0-100.0); MONOCYTES 7.7 % (2-11); NEUTROPHILS 79.6 % (40-80); RDW 14.1 % (11.5-14.5); WBC 11.2 10x3/uL (4.8-10.8)
[2020-02-01 11:19] LABS: CALC OSMOLALITY 280 mosm/kg (275-300); CALCIUM 8.6 mg/dL (8.5-10.1); CARBON DIOXIDE 25.6 mmol/L (21.0-32.0); CHLORIDE - SERUM 105 mmol/L (98-107); CREATININE - SERUM 1.4 mg/dL (0.6-1.3); GLUCOSE 152 mg/dL (74-106); POTASSIUM - SERUM 4.6 mmol/L (3.5-5.1); SODIUM 137 mmol/L (136-145); UREA NITROGEN 25 mg/dL (7-18); eGFR NON AFRICAN AMERICAN 55 mL/min (90-120)
[2020-02-01 11:24] LABS: PLATELET COUNT 174 10x3/uL (130-400)
[2020-02-01 11:25] LABS: APTT 35.9 SECONDS (22.8-39.4); INR 2.09 (0.85-1.17); PROTIME 23.2 SECONDS (11.6-15.0)
[2020-02-01 11:26] LABS: D-DIMER-QUANTITATIVE 1.71 ug/mLFEU (0.20-0.54)
[2020-02-01 11:42] LABS: ALBUMIN 2.9 g/dL (3.4-5.0); ALKALINE PHOSPHATASE 100 U/L (30-120); ALT (SGPT) 15 U/L (10-68); BILIRUBIN - TOTAL 0.31 mg/dL (0.2-1.3); CKMB 1.8 U/L (0.0-3.6); CREATINE KINASE 33 UL (21-232); PRO BNP 11562 pg/mL (0-125); PROTEIN - SERUM 6.6 g/dL (6.4-8.2)
[2020-02-01 11:44] LABS: TROPONIN-I 0.061 ng/mL (0.000-0.060)
--- NOTE | 2020-02-01 17:20 | NUR ---
PT ARRIVED ON UNIT VIA STRETCHER, HOOKED TO MONITORS, ALERT AND ORIENTED, ALL PPP, VSS, CALL LIGHT IN REACH
[2020-02-01 17:54] LABS: CKMB 2.1 U/L (0.0-3.6); CREATINE KINASE 34 UL (21-232)
[2020-02-01 17:57] LABS: TROPONIN-I 0.107 ng/mL (0.000-0.060)
[2020-02-01 23:17] LABS: CKMB 2.2 U/L (0.0-3.6); CREATINE KINASE 43 UL (21-232)
[2020-02-01 23:18] LABS: TROPONIN-I 0.106 ng/mL (0.000-0.060)
[2020-02-02] VITALS (11 sets, daily range): BP systolic 106–118; BP diastolic 68–81; BMI 17.2
[2020-02-02 04:48] LABS: BASOPHILS 0 % (0-2); EOSINOPHILS 0 % (0-7); HEMATOCRIT 38.4 % (42.0-54.0); HEMOGLOBIN 12.1 g/dL (13.5-17.5); IMMATURE GRANULOCYTES 0.4 % (0-5); LYMPHOCYTES 23.3 % (15-50); MCH 28.5 pg (26.0-34.0); MCHC 31.5 g/dL (31.0-37.0); MCV 90.4 fL (80.0-100.0); MEAN PLATELET VOLUME 11.9 fL (7.4-10.4); MONOCYTES 3.9 % (2-11); NEUTROPHILS 72.4 % (40-80); PLATELET COUNT 171 10x3/uL (130-400); RBC 4.25 10x6/uL (4.20-6.10); RDW 14.2 % (11.5-14.5)
[2020-02-02 04:53] LABS: WBC 5.1 10x3/uL (4.8-10.8)
[2020-02-02 05:16] LABS: CALC OSMOLALITY 280 mosm/kg (275-300); CARBON DIOXIDE 21.8 mmol/L (21.0-32.0); CHLORIDE - SERUM 105 mmol/L (98-107); CKMB 2.4 U/L (0.0-3.6); CREATINE KINASE 27 UL (21-232); CREATININE - SERUM 1.6 mg/dL (0.6-1.3); GLUCOSE 158 mg/dL (74-106); POTASSIUM - SERUM 4.5 mmol/L (3.5-5.1); SODIUM 136 mmol/L (136-145); UREA NITROGEN 28 mg/dL (7-18); eGFR NON AFRICAN AMERICAN 47 mL/min (90-120)
[2020-02-02 05:22] LABS: TROPONIN-I 0.082 ng/mL (0.000-0.060)
[2020-02-02 10:06] LABS: INR 1.96 (0.85-1.17); PROTIME 22.1 SECONDS (11.6-15.0)
--- NOTE | 2020-02-02 19:00 | NUR ---
REPORT RECEIVED, WILL CONTINUE POC. PATIENT IS AAOX4, LYING IN SEMI-FOWLERS POSITION. NO S/S OF DISTRESS OBSERVED, RR EVEN AND UNLABORED ON ROOM AIR. PIV TO RT AC, PATENT, INFUSING NS @ 75ML/HR. PATIENT DENIES FURTHER NEEDS AT THIS TIME. CL IN REACH, BED LOCKED AND LOWERED. WILL CTM.
[2020-02-03 04:00] VITALS: BP 108/76
[2020-02-03 06:00] LABS: BASOPHILS 0 % (0-2); EOSINOPHILS 0 % (0-7); HEMOGLOBIN 11.5 g/dL (13.5-17.5); IMMATURE GRANULOCYTES 0.3 % (0-5); LYMPHOCYTES 11.6 % (15-50); MCH 28.8 pg (26.0-34.0); MCHC 31.9 g/dL (31.0-37.0); MONOCYTES 2.8 % (2-11); NEUTROPHILS 85.3 % (40-80); PLATELET COUNT 153 10x3/uL (130-400); RDW 14.3 % (11.5-14.5)
[2020-02-03 06:10] LABS: WBC 11.2 10x3/uL (4.8-10.8)
[2020-02-03 06:14] LABS: INR 2.18 (0.85-1.17); PROTIME 23.9 SECONDS (11.6-15.0)
[2020-02-03 06:20] LABS: ANION GAP 12.5 mmol/L (8-16); CALCIUM 7.7 mg/dL (8.5-10.1); CARBON DIOXIDE 22.5 mmol/L (21.0-32.0); CREATININE - SERUM 1.4 mg/dL (0.6-1.3)
--- NOTE | 2020-02-03 07:20 | NUR ---
RECEIVE SHIFT REPORT. RESTING IN BED. ALERT AND ORIENTED X4. DENIES ANY NEEDS AT THIS TIME. WILL CONTINUE PLAN OF CARE AND SAFETY PRECAUTIONS.
[2020-02-03 08:00] VITALS: BP 116/72
[2020-02-03 12:03] LABS: BILIRUBIN NEGATIVE (NEGATIVE); KETONE NEGATIVE (NEGATIVE); NITRITE NEGATIVE (NEGATIVE); UROBILINOGEN NORMAL mg/dL (< 2)
--- NOTE | 2020-02-03 14:39 | MORECARE ---
CASE MANAGEMENT DISCHARGE SUMMARY PATIENT: CLIFF PINEDA ALLI UNIT: [id number] ADM DATE: 02/01/20 AGE: 59 : 62 SEX: M ROOM/BED: D.2103 AUTHOR: TENZIN CONLEY PHYSICIAN: REFERRING PHYSICIAN: BARI SWAN MD DATE OF SERVICE: 02/03/20 Discharge Plan Patient Name: CLIFF PINEDA [facility] [facility] 1960 Planned Disposition: Home Anticipated Discharge Date: Discharge Date: Expected LOS: Initial Reviewer: [email or web address] Initial Review Date: 02/03/2020 Generated: 02/03/20 3:39 pm DCPIA - Discharge Planning Initial Assessment Updated by [email or web address]: Rachel Estrada on 02/03/20 2:38 pm * Is the patient Alert and Oriented? Yes * PCP Emelia at Dr. Rivas's office * Pharmacy [facility] in [place] * Preadmission Environment Home with Family * ADLs Independent * Equipment Cane * List name and contact numbers for known caregivers / representatives who currently or will assist patient after discharge: Penelope Pineda - mother - [phone] Darrick Pineda - son - [phone] Vanna - DTR - unknown number * Verbal permission to speak to the caregivers and representatives has been obtained from the patient. Yes * Community resources currently utilized None * Additional services required to return to the preadmission environment? No * Can the patient safely return to the preadmission environment? Yes * Has this patient been hospitalized within the prior 30 days at any hospital? No Patient Name: CLIFF PINEDA Page 02845 at 1439 All edits/amendments must be made on the electronic document DICTATION DATE: 02/03/20 1439 POLICE COMMUNICATIONS DISPATCHER: LUIS FERNANDO 02/03/20 1439 RPT#: [id number] DC DATE: STATUS: ADM IN [facility] [address] [place] [address] END OF REPORT
--- NOTE | 2020-02-03 14:52 | MORECARE ---
CASE MANAGEMENT DISCHARGE SUMMARY PATIENT: CLIFF PINEDA ALLI UNIT: [id number] ADM DATE: 02/01/20 AGE: 59 : 62 SEX: M ROOM/BED: D.2103 AUTHOR: TENZIN CONLEY PHYSICIAN: REFERRING PHYSICIAN: BARI SWAN MD DATE OF SERVICE: 02/03/20 Discharge Plan Patient Name: CLIFF PINEDA Facility: [facility]:[place] : 1960 Planned Disposition: Home Anticipated Discharge Date: Discharge Date: Expected LOS: Initial Reviewer: [email or web address] Initial Review Date: 02/03/2020 Generated: 02/03/20 3:52 pm Comments DCP- Discharge Planning Updated by [email or web address]: Rachel Estrada on 02/03/20 1:[address] Patient Name: CLIFF PINEDA Admission Status: ER Accout number: [id number] Admission Date: 02-01-2020 : 1960 Admission Diagnosis:SHORTNESS OF BREATH Attending: BARI SWAN Current LOS: 2 Anticipated DC Date: Planned Disposition: Home Primary Insurance: MEDICAID [place] Discharge Planning Comments: CM met with patient to complete initial dc planning assessment. CM educated patient on the CM role and verbal consent given by patient to complete assessment. Patient lives at home with his parents. At discharge patient plans to return and feels this is a safe discharge. CM discussed availability of home health, rehab services, and medical equipment. Patient states may need a nebulizer, WILLIAMS form for [facility] signed. He may also require home oxygen, so I have asked RT to check room air oxygen saturation. I reinforced the importance of taking his diuretic as prescribed and to keep his f/u appointments with his physician. He does have a bathroom scale and I informed him to weigh himself daily and call his PCP for increase in weight. CM will continue to follow and will assist as needed with dc plans/needs. Pump Station Operator: Rachel Estrada DCPIA - Discharge Planning Initial Assessment Updated by [email or web address]: Rachel Estrada on 02/03/20 2:38 pm * Is the patient Alert and Oriented? Yes * PCP Emelia at Dr. Rivas's office * Pharmacy [facility] in [place] * Preadmission Environment Home with Family * ADLs Independent * Equipment Cane * List name and contact numbers for known caregivers / representatives who currently or will assist patient after discharge: Penelope Pindea - mother - [phone] Darrick Pineda - son - [phone] Vanna - DTR - unknown number * Verbal permission to speak to the caregivers and representatives has been obtained from the patient. Yes * Community resources currently utilized None * Additional services required to return to the preadmission environment? No * Can the patient safely return to the preadmission environment? Yes * Has this patient been hospitalized within the prior 30 days at any hospital? No Coverage Notice Reviewer: [email or web address] Barbara Estrada Notice Issued Date-Time: 02/03/2020 14:42 Notice Type: Patient Choice Letter Notice Delivered To: Patient Relationship to Patient: Self Watch Repairer Name: Delivery Method: HAND - Hand Delivered Karlee Days: Prior Verbal Notification: Recipient Understood Notice: Yes Recipient Signature: Yes Med Rec Note Co-signed by Attending: Coverage Notice Comment: WILLIAMS for [employer] Last DP export: 02/03/20 1:39 p Patient Name: CLIFF PINEDA Page 60701 at 1452 All edits/amendments must be made on the electronic document DICTATION DATE: 02/03/201451 FOREIGN BANKNOTE TELLER TRADER: LUIS FERNANDO 02/03/201451 RPT#: [id number] DC DATE: STATUS: ADM IN [facility] [address] [place] [address] END OF REPORT
[2020-02-03 15:54] VITALS: Ht 177.8 cm; Wt 54.4 kg
[2020-02-03 20:00] VITALS: BP 103/73
[2020-02-04] VITALS: BP 107/70
[2020-02-04 06:08] LABS: BASOPHILS 0 % (0-2); EOSINOPHILS 0.2 % (0-7); HEMATOCRIT 36.7 % (42.0-54.0); HEMOGLOBIN 12.1 g/dL (13.5-17.5); IMMATURE GRANULOCYTES 0.4 % (0-5); LYMPHOCYTES 12.3 % (15-50); MCH 29.5 pg (26.0-34.0); MCV 89.5 fL (80.0-100.0); MONOCYTES 3.2 % (2-11); NEUTROPHILS 83.9 % (40-80); PLATELET COUNT 145 10x3/uL (130-400); RDW 14.5 % (11.5-14.5)
[2020-02-04 06:33] LABS: ANION GAP 13.9 mmol/L (8-16); CALCIUM 8.3 mg/dL (8.5-10.1); CARBON DIOXIDE 24.8 mmol/L (21.0-32.0); CREATININE - SERUM 1.2 mg/dL (0.6-1.3)
[2020-02-04 06:35] LABS: INR 2.46 (0.85-1.17); PROTIME 26.3 SECONDS (11.6-15.0)
[2020-02-04 06:43] LABS: POTASSIUM - SERUM 4.7 mmol/L (3.5-5.1)
[2020-02-04 07:54] VITALS: BP 116/74
--- NOTE | 2020-02-04 08:36 | MORECARE ---
CASE MANAGEMENT DISCHARGE SUMMARY PATIENT: CLIFF PINEDA ALLI UNIT: [id number] ADM DATE: 02/01/20 AGE: 59 : 62 SEX: M ROOM/BED: D.2103 AUTHOR: TENZIN CONLEY PHYSICIAN: REFERRING PHYSICIAN: BARI SWAN MD DATE OF SERVICE: 02/04/20 Discharge Plan Patient Name: CLIFF PINEDA Facility: [facility]:[place] : 1960 Planned Disposition: Home Anticipated Discharge Date: Discharge Date: Expected LOS: Initial Reviewer: [email or web address] Initial Review Date: 02/03/2020 Generated: 02/04/20 9:35 am Comments DCP- Discharge Planning Updated by [email or web address]: Rachel Estrada on 02/03/20 1:[address] Patient Name: CLIFF PINEAD Admission Status: ER Accout number: [id number] Admission Date: 02-01-2020 : 1960 Admission Diagnosis:SHORTNESS OF BREATH Attending: BARI SWAN Current LOS: 2 Anticipated DC Date: Planned Disposition: Home Primary Insurance: MEDICAID [place] Discharge Planning Comments: CM met with patient to complete initial dc planning assessment. CM educated patient on the CM role and verbal consent given by patient to complete assessment. Patient lives at home with his parents. At discharge patient plans to return and feels this is a safe discharge. CM discussed availability of home health, rehab services, and medical equipment. Patient states may need a nebulizer, WILLIAMS form for [facility] signed. He may also require home oxygen, so I have asked RT to check room air oxygen saturation. I reinforced the importance of taking his diuretic as prescribed and to keep his f/u appointments with his physician. He does have a bathroom scale and I informed him to weigh himself daily and call his PCP for increase in weight. CM will continue to follow and will assist as needed with dc plans/needs. Special Education Bus Driver: Rachel Estrada DCPIA - Discharge Planning Initial Assessment Updated by [email or web address]: Rachel Estrada on 02/03/20 2:38 pm * Is the patient Alert and Oriented? Yes * PCP Emelia at Dr. Rivas's office * Pharmacy [facility] in [place] * Preadmission Environment Home with Family * ADLs Independent * Equipment Cane * List name and contact numbers for known caregivers / representatives who currently or will assist patient after discharge: Penelope Pineda - mother - [phone] Darirck Pineda - son - [phone] Vanna - DTR - unknown number * Verbal permission to speak to the caregivers and representatives has been obtained from the patient. Yes * Community resources currently utilized None * Additional services required to return to the preadmission environment? No * Can the patient safely return to the preadmission environment? Yes * Has this patient been hospitalized within the prior 30 days at any hospital? No External Providers [facility] Next Contact Date: Service Request Date: Service Type: Resolution: Reviewer: Comments: Coverage Notice Reviewer: [email or web address] Barbara Estrada Notice Issued Date-Time: 02/03/2020 14:42 Notice Type: Patient Choice Letter Notice Delivered To: Patient Relationship to Patient: Self Academic Support Center Director Name: Delivery Method: HAND - Hand Delivered Karlee Days: Prior Verbal Notification: Recipient Understood Notice: Yes Recipient Signature: Yes Med Rec Note Co-signed by Attending: Coverage Notice Comment: WILLIAMS for [employer] Last DP export: 02/03/20 1:52 p Patient Name: CLIFF PINEDA Page 22675 at 0836 All edits/amendments must be made on the electronic document DICTATION DATE: 02/04/20834 TECHNICAL EXPERT: LUIS FERNANDO 02/04/20834 RPT#: [id number] DC DATE: STATUS: ADM IN [facility] [address] [place] [address] END OF REPORT
--- NOTE | 2020-02-04 08:43 | MORECARE ---
CASE MANAGEMENT DISCHARGE SUMMARY PATIENT: CLIFF PINEDA ALLI UNIT: [id number] ADM DATE: 02/01/20 AGE: 59 : 62 SEX: M ROOM/BED: D.2103 AUTHOR: YAELDOC PHYSICIAN: REFERRING PHYSICIAN: BARI SWAN MD DATE OF SERVICE: 02/04/20 Discharge Plan Patient Name: CLIFF PINEDA Facility: [facility]:[place] : 1960 Planned Disposition: Home Anticipated Discharge Date: Discharge Date: Expected LOS: Initial Reviewer: [email or web address] Initial Review Date: 02/03/2020 Generated: 02/04/20 9:42 am Comments DCP- Discharge Planning Updated by [email or web address]: Rachel Estrada on 02/04/20 7:[address] Faxed order for Nebulizer to [facility]. He did not qualify for home oxygen. Oxygen saturation was 98% at rest and 94% with exertion. CM will continue to follow and assist with discharge planning/needs. DCP- Discharge Planning Updated by [email or web address]: Rachel Estrada on 02/03/20 1:[address] Patient Name: CLIFF PINEDA Admission Status: ER Accout number: [id number] Admission Date: 02-01-2020 : 1960 Admission Diagnosis:SHORTNESS OF BREATH Attending: BARI SWAN Current LOS: 2 Anticipated DC Date: Planned Disposition: Home Primary Insurance: MEDICAID [place] Discharge Planning Comments: CM met with patient to complete initial dc planning assessment. CM educated patient on the CM role and verbal consent given by patient to complete assessment. Patient lives at home with his parents. At discharge patient plans to return and feels this is a safe discharge. CM discussed availability of home health, rehab services, and medical equipment. Patient states may need a nebulizer, WILLIAMS form for [employer] signed. He may also require home oxygen, so I have asked RT to check room air oxygen saturation. I reinforced the importance of taking his diuretic as prescribed and to keep his f/u appointments with his physician. He does have a bathroom scale and I informed him to weigh himself daily and call his PCP for increase in weight. CM will continue to follow and will assist as needed with dc plans/needs. Sales And Marketing Assistant: Rachel Estrada DCPIA - Discharge Planning Initial Assessment Updated by [email or web address]: Rachel Estrada on 02/03/20 2:38 pm * Is the patient Alert and Oriented? Yes * PCP Emelia at Dr. Rivas's office * Pharmacy [facility] in [place] * Preadmission Environment Home with Family * ADLs Independent * Equipment Cane * List name and contact numbers for known caregivers / representatives who currently or will assist patient after discharge: Penelope Pineda - mother - [phone] Darrick Pineda - son - [phone] Vanna - DTR - unknown number * Verbal permission to speak to the caregivers and representatives has been obtained from the patient. Yes * Community resources currently utilized None * Additional services required to return to the preadmission environment? No * Can the patient safely return to the preadmission environment? Yes * Has this patient been hospitalized within the prior 30 days at any hospital? No Coverage Notice Reviewer: [id number] - Rachel Estrada Notice Issued Date-Time: 02/03/2020 14:42 Notice Type: Patient Choice Letter Notice Delivered To: Patient Relationship to Patient: Self Window Shade Installer Name: Delivery Method: HAND - Hand Delivered Karlee Days: Prior Verbal Notification: Recipient Understood Notice: Yes Recipient Signature: Yes Med Rec Note Co-signed by Attending: Coverage Notice Comment: WILLIAMS for [facility] Kvng DP export: 02/04/20 7:36 a Patient Name: CLIFF PINEDA Page 30992 at 0843 All edits/amendments must be made on the electronic document DICTATION DATE: 02/04/20841 IRON ASSORTER: LUIS FERNANDO 02/04/20841 RPT#: [id number] DC DATE: STATUS: ADM IN [facility] [address] [place] [address] END OF REPORT
[2020-02-04 11:42] VITALS: BP 109/80
[2020-02-04] MEDS ORDERED: PULMICORT0.5 MG/21 UPD (11:43)
[2020-02-04] MEDS ORDERED: MUCINEX DM ER1 EAC1 PO (11:43)
[2020-02-04] MEDS ORDERED: TESSALON PERLE100 MG PO (11:43)
[2020-02-04] MEDS ORDERED: OMNICEF300 MG PO (11:45)
[2020-02-04] MEDS ORDERED: PREDNISONE10 MG PO (11:45)
[2020-02-04] MEDS ORDERED: ZITHROMAX500 MG PO (11:45)
--- NOTE | 2020-02-04 12:34 | NUR ---
Nutrition Follow-up: Good appetite. Ate ~75% of breakfast this AM. Noted plans for d/c today. Diet: Regular Wt: 120# (02/01) Last BM: 02/02 Labs noted: Glu 167, Ca 8.3 Meds noted: Prednisone, Coumadin, Florajen, Lasix, KDur, Pepcid, NS @ 75 -Encourage PO intake and honor food preferences. -Monitor wt; noted daily wts ordered. -RD following.
--- NOTE | 2020-02-04 12:55 | MORECARE ---
CASE MANAGEMENT DISCHARGE SUMMARY PATIENT: CLIFF PINEDA ALLI UNIT: [id number] ADM DATE: 02/01/20 AGE: 59 : 62 SEX: M ROOM/BED: D.2103 AUTHOR: YAEL,DOC PHYSICIAN: REFERRING PHYSICIAN: BARI SWAN MD DATE OF SERVICE: 02/04/20 Discharge Plan Patient Name: CLIFF PINEDA Facility: [facility]:[place] : 1960 Planned Disposition: Home Anticipated Discharge Date: Discharge Date: Expected LOS: Initial Reviewer: [email or web address] Initial Review Date: 02/03/2020 Generated: 02/04/20 1:54 pm Comments DCP- Discharge Planning Updated by [email or web address]: Rachel Estrada on 02/04/20 11:[address] Patient has had his nebulizer already delivered to the hospital. I informed Sarah, discharge nurse, that he would need to curing pickling packer his Duo-neb from his pharmacy. Sarah is calling Dr. Eastman to get an order to call to his pharmacy. I called his pharmacy and Duo-neb requires a prior auth, but he can yung pay 60 vials for 18 dollars. He said that he can yung pay for his duo-neb and Sarah will call to pharmacy and cancel Pulmicort if that is the order she gets from Dr. Eastman. Home today. DCP- Discharge Planning Updated by [email or web address]: Rachel Sean on 02/04/20 7:[address] Faxed order for Nebulizer to [facility] [place]. He did not qualify for home oxygen. Oxygen saturation was 98% at rest and 94% with exertion. CM will continue to follow and assist with discharge planning/needs. DCP- Discharge Planning Updated by [email or web address]: Rachel Sean on 02/03/20 1:[address] Patient Name: CLIFF PINEDA Admission Status: ER Accout number: [id number] Admission Date: 02-01-2020 : 1960 Admission Diagnosis:SHORTNESS OF BREATH Attending: BARI SWAN Current LOS: 2 Anticipated DC Date: Planned Disposition: Home Primary Insurance: MEDICAID [place] Discharge Planning Comments: CM met with patient to complete initial dc planning assessment. CM educated patient on the CM role and verbal consent given by patient to complete assessment. Patient lives at home with his parents. At discharge patient plans to return and feels this is a safe discharge. CM discussed availability of home health, rehab services, and medical equipment. Patient states may need a nebulizer, WILLIAMS form for [facility] signed. He may also require home oxygen, so I have asked RT to check room air oxygen saturation. I reinforced the importance of taking his diuretic as prescribed and to keep his f/u appointments with his physician. He does have a bathroom scale and I informed him to weigh himself daily and call his PCP for increase in weight. CM will continue to follow and will assist as needed with dc plans/needs. Refresh Technician: Rachel Estrada DCPIA - Discharge Planning Initial Assessment Updated by [email or web address]: Rachel Estrada on 02/03/20 2:38 pm * Is the patient Alert and Oriented? Yes * PCP Emelia at Dr. Rivas's office * Pharmacy [facility] in [place] * Preadmission Environment Home with Family * ADLs Independent * Equipment Cane * List name and contact numbers for known caregivers / representatives who currently or will assist patient after discharge: Penelope Pineda - mother - [phone] Darrick Pineda - son - [phone] Vanna - DTR - unknown number * Verbal permission to speak to the caregivers and representatives has been obtained from the patient. Yes * Community resources currently utilized None * Additional services required to return to the preadmission environment? No * Can the patient safely return to the preadmission environment? Yes * Has this patient been hospitalized within the prior 30 days at any hospital? No Coverage Notice Reviewer: [id number] - Rachel Estrada Notice Issued Date-Time: 02/03/2020 14:42 Notice Type: Patient Choice Letter Notice Delivered To: Patient Relationship to Patient: Self Investigator Internal Affairs Name: Delivery Method: HAND - Hand Delivered Karlee Days: Prior Verbal Notification: Recipient Understood Notice: Yes Recipient Signature: Yes Med Rec Note Co-signed by Attending: Coverage Notice Comment: WILLIAMS for [facility] Last DP export: 02/04/20 7:43 a Patient Name: CLIFF PINEDA Page 62098 at 1255 All edits/amendments must be made on the electronic document DICTATION DATE: 02/04/201253 BLOOD BANK SPECIALIST: LUIS FERNANDO 02/04/20 125 RPT#: [id number] DC DATE: STATUS: ADM IN [facility] [address] [place] [address] END OF REPORT
[2020-02-04] MEDS ORDERED: IPRAT-ALBUT 0.5-3 ML UPD (12:59)
--- NOTE | 2020-02-04 13:35 | NUR ---
DC paperwork verbally explained to pt w/understanding sated to all. IV DC'd from Rt AC, 18GA Cath intact--bandage in place--pt tolerated well. Pt awaiting ride home--no c/o needs noted
--- NOTE | 2020-02-04 14:11 | NUR ---
Pt exited hospital/wheelchair in good stable condition w/all belongings in hand.
--- NOTE | 2020-02-05 14:55 | MORECARE ---
CASE MANAGEMENT DISCHARGE SUMMARY PATIENT: CLIFF PINEDA ALLI UNIT: [id number] ADM DATE: 02/01/20 AGE: 59 : 62 SEX: M ROOM/BED: D.2103 AUTHOR: TENZIN CONLEY PHYSICIAN: REFERRING PHYSICIAN: BARI SWAN MD DATE OF SERVICE: 02/05/20 Discharge Plan Patient Name: CLIFF PINEDA Facility: [facility]:[place] : 1960 Planned Disposition: Home Anticipated Discharge Date: Discharge Date: 02/04/2020 Expected LOS: 0 Initial Reviewer: [email or web address] Initial Review Date: 02/03/2020 Generated: 02/05/20 3:54 pm Comments DCP- Discharge Planning Updated by [email or web address]: Rachel Estrada on 02/04/20 11:[address] Patient has had his nebulizer already delivered to the hospital. I informed Sarah, discharge nurse, that he would need to berry picker his Duo-neb from his pharmacy. Sarah is calling Dr. Eastman to get an order to call to his pharmacy. I called his pharmacy and Duo-neb requires a prior auth, but he can yung pay 60 vials for 18 dollars. He said that he can yung pay for his duo-neb and Sarah will call to pharmacy and cancel Pulmicort if that is the order she gets from Dr. Eastman. Home today. DCP- Discharge Planning Updated by [email or web address]: Rachel Estrada on 02/04/20 7:[address] Faxed order for Nebulizer to [facility]. He did not qualify for home oxygen. Oxygen saturation was 98% at rest and 94% with exertion. CM will continue to follow and assist with discharge planning/needs. DCP- Discharge Planning Updated by [email or web address]: Rachel Estrada on 02/03/20 1:[address] Patient Name: CLIFF PINEDA Admission Status: ER Accout number: [id number] Admission Date: 02-01-2020 : 1960 Admission Diagnosis:SHORTNESS OF BREATH Attending: BARI SWAN Current LOS: 2 Anticipated DC Date: Planned Disposition: Home Primary Insurance: MEDICAID [place] Discharge Planning Comments: CM met with patient to complete initial dc planning assessment. CM educated patient on the CM role and verbal consent given by patient to complete assessment. Patient lives at home with his parents. At discharge patient plans to return and feels this is a safe discharge. CM discussed availability of home health, rehab services, and medical equipment. Patient states may need a nebulizer, WILLIAMS form for [facility] signed. He may also require home oxygen, so I have asked RT to check room air oxygen saturation. I reinforced the importance of taking his diuretic as prescribed and to keep his f/u appointments with his physician. He does have a bathroom scale and I informed him to weigh himself daily and call his PCP for increase in weight. CM will continue to follow and will assist as needed with dc plans/needs. Broadcast Program Director: Rachel Estrada DCPIA - Discharge Planning Initial Assessment Updated by [email or web address]: Rachel Estrada on 02/03/20 2:38 pm * Is the patient Alert and Oriented? Yes * PCP Emelia at Dr. Rivas's office * Pharmacy [facility] in [place] * Preadmission Environment Home with Family * ADLs Independent * Equipment Cane * List name and contact numbers for known caregivers / representatives who currently or will assist patient after discharge: Penelope Pineda - mother - [phone] Darrick Pineda - son - [phone] Vanna - DTR - unknown number * Verbal permission to speak to the caregivers and representatives has been obtained from the patient. Yes * Community resources currently utilized None * Additional services required to return to the preadmission environment? No * Can the patient safely return to the preadmission environment? Yes * Has this patient been hospitalized within the prior 30 days at any hospital? No Coverage Notice Reviewer: [id number] - Rachel Estrada Notice Issued Date-Time: 02/03/2020 14:42 Notice Type: Patient Choice Letter Notice Delivered To: Patient Relationship to Patient: Self Vmware Engineer Name: Delivery Method: HAND - Hand Delivered Karlee Days: Prior Verbal Notification: Recipient Understood Notice: Yes Recipient Signature: Yes Med Rec Note Co-signed by Attending: Coverage Notice Comment: WILLIAMS for [employer] Last DP export: 02/04/20 11:55 a Patient Name: CLIFF PINEDA Page 78303 at 1455 All edits/amendments must be made on the electronic document DICTATION DATE: 02/05/201453 KEG RAISER: LUIS FERNANDO 02/05/20 1454 RPT#: [id number] DC DATE:02/04/20 STATUS: DIS IN [facility] [address] [place] [address] END OF REPORT
== END 2020-02-04 14:18 | disposition home or self-care (01) | DRG 291 ==
LOC: D.ER 10:17 → D.M2 14:39 → D.EDHOLD 14:39 → D.ICU 14:39 → D.M2 02-02 13:05
PROVIDERS: Emergency Medicine; Family Medicine; ADMIT Family Medicine; ATTEND Family Medicine
DX: I13.0 Hypertensive heart and chronic kidney disease with heart failure and stage 1 through stage 4 chronic kidney disease, or unspecified chronic kidney disease (principal); J18.9 Pneumonia, unspecified organism; J96.01 Acute respiratory failure with hypoxia; I50.43 Acute on chronic combined systolic (congestive) and diastolic (congestive) heart failure; J96.02 Acute respiratory failure with hypercapnia; N17.9 Acute kidney failure, unspecified; F17.203 Nicotine dependence unspecified, with withdrawal; J98.11 Atelectasis; Z68.1 Body mass index [BMI] 19.9 or less, adult; I42.9 Cardiomyopathy, unspecified; I25.10 Atherosclerotic heart disease of native coronary artery without angina pectoris; R73.9 Hyperglycemia, unspecified; F32.9 Major depressive disorder, single episode, unspecified; F12.90 Cannabis use, unspecified, uncomplicated; J43.9 Emphysema, unspecified; N18.9 Chronic kidney disease, unspecified; J30.9 Allergic rhinitis, unspecified; D63.1 Anemia in chronic kidney disease; R63.4 Abnormal weight loss; Z86.73 Personal history of transient ischemic attack (TIA), and cerebral infarction without residual deficits; I70.219 Atherosclerosis of native arteries of extremities with intermittent claudication, unspecified extremity